=== PATIENT | female | born 1950 | race Caucasian/White ===

== ENCOUNTER 2018-05-29 11:00 | Outpatient (RCR) | payer MEDICARE, SELFPAY ==
[2015-11-23 13:00] VITALS: BMI 31.4
--- NOTE | 2018-03-27 16:22 | HP.OTEVAL_ITS ---
Patient's Visit Information JEROME CORREA is a 67 year old F, referred to Occupational Therapy by Angélica Schofield MD, with a diagnosis of Lt Radial Styloid tenosynovitis. Date of Evaluation: 03/27/18 Occupational Therapist: Mary Jo Curtis - Subjective Subjective: Pt seen for initial occupational therapy evaluation for L radial styloid tenosynovitis that she has had for the past few months. She has been wearing a splint on her L hand for the past 6 wks to decrease movement of L hand. Pt states she is only to have her hand out of the splint 1 hr a day. She has hx of Parkinson's disease. She works out daily, but has been very limited with that over the past few weeks secondary to dealing with a family related issue. Pt lives w/ spouse and is planning to go to [place] for 2 months in May and would like to have decreased pain and increased functional use of L hand when she goes to [place]. - Pain L wrist 0 Pain Intensity Range: 0, 1, 2, 3, 4, 5, 6, 7, 8, 9, 10 - Objective Objective/Observation: decreased ROM and strength L hand/wrist, increased edema L hand/wrist, increased pain with movement of L hand/wrist - ROM ROM Comments: R wrist 50/115. L wrist 37/35. Able to make active composite fist - Strength History Department Chair: R 55#, L DNT Lateral Pinch: R 8#, L DNT Tripod Pinch: R 7#, L DNT - Edema Other: Slight edema L wrist - Sensation Sensation Comments: Numbness and tingling L hand - DASH-Disabilities of Arm, Shoulder& Hand DASH Sum: 97 - Goals Goal:: Pt will progress w/ L hand aircraft refueller strength to 45# to increase ability to ring out wash clothes independently without assist when washing dishes. Goal:: Pt will progress w/ L wrist AROM flexion by 50' to assist w/ BADLs. Goal:: Pt will demo no pain greater than 2/10 with movement of L hand/wrist by d/c from OT services Goal:: Pt will be educated on joint protection and energy conservation t echniques w/ good understanding and demo 100%x Goal:: Pt will be educated on self massage techniques and L UE HEP with good understanding and demo 100%x - Rehabilitation General Assessment: Pt demo decreased AROM and strength L hand and wrist with increased pain L hand indicating a need for skilled OT interventions to increase L hand/wrist AROM and strength, educate on HEP and decrease pain of L hand/wrist to increase ability to use L hand for BADL. Rehabilitation Potential: Good - Anticipated Interventions Anticipated Interventions: A/AAROM/PROM, Strengthening, Massage, Modalities, Orthoses, Joint Protection/Energy Conservation, Fine Motor Coord/Edgard, ADL Training, Education re Self Massage Techniques, Caregiver Training, Home Program - Visit Plan Frequency: 1-2x /Week Duration: 4-6 Weeks General Plan: increase L hand/wrist AROM and strength, educate on HEP and joint protection and decrease pain of L hand/wrist to increase ability to use L hand for BADL. TEXT: Thank you for the opportunity to evaluate your patient. For Medicare and Medicare HMO plans, please review the plan of care and approve it. It will need to be FAXED BACK to us at [phone] for Medicare purposes. Please let me know if there are questions or concerns regarding this plan of care. Physician Signature: Date:
--- NOTE | 2018-05-01 12:10 | HP.OTREVAL ---
Angélica Schofield MD, It has been my pleasure to treat JEROME CORREA over the last 10 visits for Lt Radial Styloid tenosynovitis. Please see the progress note below for an update on the occupational therapy plan of care! Subjective: Pt arrived late to session apologizing for being late stating she had to wash all her Do dishes this morning and has a lot going on. Increased pain in L hand secondary to washing dishes Objective/Function: 10th visit OT re-eval: Pt continues to have increased pain with movement and when completing repetitive movements. Have educated pt on ROM and strengthening exercises to complete at home. Have educated on joint protection and energy conservation techniques and to minimize repetitive movements LUE. Have used ultra sound, fluidotherapy and PB to assist with decreasing pain and increasing circulation to promote healing process. Pt no longer wearing L hand splint and has started the light strengthening exercises with putty and using playdough at home. Pt has progressed with L computer technical support specialist strength 40#. Her L wrist extension has progressed from 37' to 54' and L wrist flexion from 35' to 65'. Pt contines to have increased pain with movements and is concerned with bump on hand. Pt would continue to benefit from more skilled OT interventions to continue to increase L UE strength, AROM and decrease pain with movement. Rec continued OT services 1-2x/wk for 3wks. Plan Frequency: 1-2x /Week Duration: 4-6 Weeks Plan: cont w/ prior POC, see Re-Eval for all details Goals - Goals Goal:: Pt will progress w/ L hand computer technical support specialist strength to 45# to increase ability to ring out wash clothes independently without assist when washing dishes. Goal:: Pt will progress w/ L wrist AROM flexion by 50' to assist w/ BADLs. Goal:: Pt will demo no pain greater than 2/10 with movement of L hand/wrist by d/c from OT services Goal:: Pt will be educated on joint protection and energy conservation techniques w/ good understanding and demo 100%x Goal:: Pt will be educated on self massage techniques and L UE HEP with good understanding and demo 100%x Anticipated Interventions Anticipated Interventions: A/AAROM/PROM, Strengthening, Massage, Modalities, Orthoses, Joint Protection/Energy Conservation, Fine Motor Coord/Edgard, ADL Training, Education re Self Massage Techniques, Caregiver Training, Home Program Please do not hesitate to contact me at [phone] by phone or if you have questions or concerns regarding this new plan of care! Sincerely, Mary Jo Curtis
--- NOTE | 2018-05-29 15:25 | HP.OTDCSUM_ITS ---
HP - OT D/C Summary It has been my pleasure to treat JEROME CORREA under orders from Angélica Schofield MD, for the diagnosis of Lt Radial Styloid tenosynovitis for a total of 14 visit(s). Please see the following information for a summary of their discharge status. - Objective Objective/Function: increase L wrist ROM and strength to increase independence with functional living tasks - Goals Patient Goals: Regain Strength, Decrease Pain, Decrease Swelling/Stiffness, Improve Fine Motor Skills, Use Hand/Wrist/Arm Normally Again, Sleep Better, Decrease Tingling/Numbness, Increase ROM, Be More Independent in ADLS, Resume Former Household Responsibilities (Cooking,Cleaning,Yard, etc.), Resume Hobbies Goal:: Pt will progress w/ L hand ad trafficker strength to 45# to increase ability to ring out wash clothes independently without assist when washing dishes. Goal:: Pt will progress w/ L wrist AROM flexion by 50' to assist w/ BADLs. Goal:: Pt will demo no pain greater than 2/10 with movement of L hand/wrist by d/c from OT services Goal:: Pt will be educated on joint protection and energy conservation techniques w/ good understanding and demo 100%x Goal:: Pt will be educated on self massage techniques and L UE HEP with good understanding and demo 100%x - Plan Plan: d/c OT services secondary to leaving for [place] for few months - D/C Information Discharge Comments: Pt has made limited progress with OT goals. She was seen for Lt Radial Styloid tenosynovitis and a few wks into therapy pt had to have cyst removed from L hand which increased edema and has limited progress, AROM and strength. Pt completed AROM L wrist 37/35 at evaluation and at d/c was 30/45. Pt L hand ad trafficker strength at d/c was 25# and R hand ad trafficker strength at evaluation was 55#. Pt L lateral pinch at d/c was 4# and tripod pinch 3#, was not tested at evaluation secondary to painful to complete task. Pt continues to demo increased edema and pain with movement of L wrist/hand. Pt has been educated on L UE HEP and joint protection, energy conservation techniques. Pt has been educated on use of modalities to assist with edema and stiffness. Pt educated on scar massage and manual massage techniques. Pt did not meet all goals secondary to increased pain, edema, decreased strength. Pt is completing all BADL/IADL tasks on her own. Pt would benefit from more OT interventions to increase L UE strength, AROM and decrease pain and edema however pt d/c from OT services secondary to moving to [place] for winter months. If there are questions or concerns regarding this patient's occupational therapy, please fell free to call me at [phone]. Thank you for the referral of this patient. Sincerely, Mary Jo Curtis
== END 2018-05-29 19:00 | disposition home or self-care (01) ==
LOC: OT 11:00
PROVIDERS: Family Provider Family Medicine; PCP Family Medicine; Referring Provider Orthopaedic Surgery Hand Surgery; Visit Provider Orthopaedic Surgery Hand Surgery
DX: M65.4 Radial styloid tenosynovitis [de Quervain] (principal)
CPT/HCPCS: 97035; 97110; 97140; 97165; 97166; 97168; 97530

== ENCOUNTER 2019-08-01 17:44 | Emergency (ER) | payer MEDICARE, SELFPAY ==
[2015-11-23 13:00] VITALS: BMI 31.4
[2019-08-01 17:45] VITALS: BP 154/84; PULSE 81; RESP 16; TEMP 36.8; O2SAT 100; BMI 31.4
--- NOTE | 2019-08-01 18:01 | CT_ITS ---
STUDY: CT BRAIN WITHOUT CONTRAST REASON FOR EXAM: Female, 69 years old. FELL ASLEEP ON TOILET, FELL AND HIT HEAD. NO LOC. RADIATION DOSAGE (If Supplied By Facility): CTDIvol = ( 44.99 ) mGy, DLP = ( 779.24 ) mGycm TECHNIQUE: Transaxial CT imaging of the brain was performed without administration of intravenous contrast material. Individualized dose optimization techniques were used for this CT. COMPARISON: No relevant priors. FINDINGS: Small right parietal scalp hematoma. Normal calvarium. Normal size ventricles and extra-axial spaces for the patient''s age. Normal white matter tracts of the cerebral hemispheres. Normal basal ganglia and thalami. Normal brainstem. Normal cerebellum. There is no intracranial hemorrhage. There are no findings of an acute ischemic infarction. Normal visualized paranasal sinuses. CT/Brain/Head without Contrast IMPRESSION: Small right parietal scalp hematoma. No intracranial hemorrhage. Electronically Signed: Ghulam Mays MD at 18:48 EST Tel , Service support ,
--- NOTE | 2019-08-01 18:02 | ED.DCSUM_ITS ---
- ER Visit Summary Date of Service: 08/01/19 Chief Complaint: Head injury History of Present Illness: The patient is a 69 F who presents with a head injury that occurred today. Patient states she fell while she was on the toilet. Patient states she fell asleep on the toilet and fell forward. Patient states she hit her head on the bathtub. Patient denies any loss of consciousness. Patient states her pain is over the right parietal area. Patient states the pain is worse with bending forward. Patient describes the pain as sharp. Patient has a history of Parkinson's disease but denies any worsening symptoms. Patient states she is able to ambulate normally. Patient denies any nausea or vomiting. Patient denies any visual changes. Patient states that when she looked in the mirror she thought her right eye was glassed over this morning. Physical Examination: Vital signs are stable. Patient is afebrile. Patient is in no acute distress. Pupils are equal, round, and reactive to light bilaterally. Extraocular muscles are intact. Conjunctiva is clear. Neck is smith pple. Trachea is midline. There is no JVD. Heart was regular rate and rhythm. Lungs are clear and equal bilaterally. Abdomen is soft. Bowel sounds are normal. There is no tenderness. Cranial nerves II through XII are intact. There are no focal motor or sensory deficits noted. There is tenderness and a small hematoma over the right parietal area. There is no bony crepitance or step-off. There is no ecchymosis noted. Test Results: CT scan of the brain was obtained. There is no acute intracranial abnormality. This was interpreted by the radiologist and reviewed by myself. Emergency Department Course and Treatment: Patient was instructed to use ice to the area. Patient was instructed to follow-up with her primary care physician in 5 to 7 days. Patient was instructed to take Tylenol or ibuprofen as needed for pain. Patient understood and was agreeable with the plan. All questions were answered. Disposition: Discharge home Impression: Head contusion This note was generated with [employer] dictation software. It may contain incorrect words, spelling, and punctuation that were not noted in review of the chart prior to signing ED Disposition - Plan for ED Patient: Disposition: Home or Assisted Living Diagnosis: Head contusion Instructions: HEAD INJURY, No Wake-Up (Adult) Referrals: Jason Dominguez MD [Primary Care Provider] - 5-7 Days
== END 2019-08-01 19:32 | disposition home or self-care (01) ==
PROVIDERS: Emergency Provider Emergency Medicine; PCP Family Medicine
DX: S00.03XA Contusion of scalp, initial encounter (principal); W18.12XA Fall from or off toilet with subsequent striking against object, initial encounter; Y93.9 Activity, unspecified; Y92.9 Unspecified place or not applicable; G20 Parkinson's disease
CPT/HCPCS: 70450; 99282

== ENCOUNTER 2019-12-16 11:18 | Observation (INO) | payer MEDICARE, SELFPAY ==
[2015-11-23 13:00] VITALS: BMI 31.4
[2019-12-16] VITALS (8 sets, daily range): BP systolic 114–142; BP diastolic 47–62; PULSE 63–81; RESP 14–18; TEMP 36.6–37.2; O2SAT 94–100; BMI 33.0; BMI 32.0
--- NOTE | 2019-12-16 11:54 | EKG12_ITS ---
Test Reason : CHEST HEAVINESS Blood Pressure : / mmHG Vent. Rate : 078 BPM Atrial Rate : 078 BPM P-R Int : 192 ms QRS Dur : 088 ms QT Int : 394 ms P-R-T Axes : 050 007 038 degrees QTc Int : 449 ms Normal sinus rhythm Normal ECG Confirmed by DALLAS RAMIREZ ([id number]), greeting card editor BETTY CLOUD ([id number]) on 12/21/2019 12:04:04 PM Referred By: /ES Confirmed By:DALLAS RAMIREZ
--- NOTE | 2019-12-16 11:56 | CT_ITS ---
STUDY: CT ABDOMEN AND PELVIS WITHOUT CONTRAST REASON FOR EXAM: Female, 69 years old. LLQ PAIN X 5 DAYS, SOB X 1 WK RADIATION DOSAGE (If Supplied By Facility): CTDIvol = ( 19.26 ) mGy, DLP = ( 1196.36 ) mGycm TECHNIQUE: Transaxial images were obtained from the dome of the diaphragm to the symphysis pubis without oral contrast, and without intravenous contrast. Sagittal and coronal images were reconstructed. Individualized dose optimization techniques were used for this CT. COMPARISON: 2017 FINDINGS: The visualized lung bases are unremarkable. The visualized portions of the heart are within normal limits. Normal liver. Normal gallbladder and extrahepatic biliary system. Normal spleen. Normal pancreas. Normal bilateral adrenal glands. Stable pelvocaliectasis in both kidneys. This is unchanged from the previous study and likely chronic or congenital. There is no hydroureter or perinephric or periureteral inflammatory stranding. Stable 4 cm left renal cyst. There is a small hiatal hernia. Normal small intestine. Retained stool noted throughout the colon. Scattered sigmoid diverticulosis without CT evidence of acute diverticulitis. There is non-visualization of the appendix. There is diffuse atherosclerotic calcification of the abdominal aorta, without a demonstrated aneurysm. Normal inferior vena cava. Normal retroperitoneum. Normal urinary bladder. Uterus is still present, the endometrium cannot be accurately evaluated with CT. There is a stable 1.5 x 3 cm right renal cyst. Normal abdominal wall. There are diffuse degenerative changes of the visualized lumbar spine. CT/Abdomen/Pelvis W IV Cont ONLY IMPRESSION: Stable pelvic caliectasis in both kidneys, suspect this is likely chronic, it is described on the previous study. No hydroureter, perinephric or periureteral inflammatory stranding noted. Stable renal cysts, no specific follow-up needed Diverticulosis Uterus is still present, likely contains an involuted calcified fibroid, the endometrium cannot be accurately evaluated with CT. 1.5 x 3 cm right ovarian cyst unchanged from previous study. Electronically Signed: Braxton Hall MD at 13:38 EDT , Service support ,
--- NOTE | 2019-12-16 12:01 | ED.DCSUM_ITS ---
- ER Visit Summary Date of Service: 12/16/19 Chief Complaint: Multiple complaints History of Present Illness: The patient is a 69 F with chest heaviness, shortness of breath, cough. She also complains of abdominal pain, nausea. She has had a mild headache. She has had temperature up to 99. She states she has had a nonproductive cough. She has a history of Parkinson's and has some difficulty with swallowing at baseline. She states she may have aspirated a couple of days ago. She has been having intermittent chest heaviness. No sick contacts. No recent travel. She called her primary care physician who was concerned about possibility of COVID and advised her to come to the emergency department. Physical Examination: Vitals are stable. Temperature 99. Pulse ox 99% on room air. Alert no acute distress. HEENT exam is unremarkable. Neck is supple. Lungs are clear and equal bilaterally. Heart is regular rate and rhythm. Abdomen is soft left lower quadrant tenderness with no guarding or rebound Extremities are unremarkable. Skin is warm and dry. No focal neurologic deficit. Remainder of exam is unremarkable. Emergency Department Course and Treatment: EKG is sinus rhythm rate of 78 with no acute ischemic changes. Chest x-ray shows no acute process. CT abdomen pelvis shows stable pelvic caliectasis in both kidneys, suspect this is likely chronic, it is described on the previous study. No hydroureter, perinephric or periureteral inflammatory stranding noted. Stable renal cysts, no specific follow-up needed. Diverticulosis. Uterus is still present, likely contains an involuted calcified fibroid, the endometrium cannot be accurately evaluated with CT. 1.5 x 3 cm right ovarian cyst unchanged from previous study. CBC, chemistries unremarkable. Urinalysis unremarkable. Troponin is negative. Due to patient's intermittent chest heaviness will discuss with the hospitalist for observation. Covid testing will be sent. Disposition: Admission Impression: Chest pain, left lower quadrant abdominal pain This note was generated with [employer] dictation software. It may contain incorrect words, spelling, and punctuation that were not noted in review of the chart prio r to signing ED Disposition - Plan for ED Patient: Referrals: Jason Dominguez MD [Primary Care Provider] -
[2019-12-16] MEDS: Ondansetron 4 MG/2 ML Vial IV (12:28)
[2019-12-16 12:29] LABS: Absolute Lymphocyte Count 1.55 X10^3/uL (0.83-4.51); Absolute Neutrophil Count 2.7 X10^3/uL (2.0-7.7); Basophil# 0.03 X10^3/uL; Basophil% 0.6 % (0-1); Eosinophil# 0.09 X10^3/uL; Eosinophils% 1.9 % (0-5); Hematocrit 44.7 % (37-47); Hemoglobin 14.5 g/dL (12.0-15.0); Lymphocyte # 1.55 X10^3/ul (4.0); Lymphocyte % 32.4 % (19-41); Mean Corp Hgb Conc 32.4 g/dL (32-36); Mean Corpuscular Hgb 29.2 pg (27.0-32.0); Mean Corpuscular Volume 89.9 fL (81-99); Mean Platelet Vol. 10.6 fl (6.2-12.0); Monocyte% 8.4 % (0-10); NRBC Flagged by Analyzer 0 % (0-5); Neutrophil % 56.5 % (47-70); Platelet Count 213 K/mm3 (150-450); RBC Distribution Width CV 12.8 % (11.6-14.6); RBC Distribution Width SD 41.9 fl (35.1-43.9); Red Blood Count 4.97 M/mm3 (4.2-5.4); White Blood Count 4.8 K/mm3 (4.4-11.0)
[2019-12-16 12:44] LABS: ALB/GLOB Ratio 1.1 RATIO (0.9-2.4); AST(SGOT) 19 U/L (15-37); Alanine Aminotransfer ALT/SGPT 10 U/L (13-56); Albumin, Serum 3.8 g/dL (3.2-5.0); Alkaline Phosphatase 106 U/L (45-117); Anion Gap 1 (5-15); BUN 24 mg/dL (7-18); BUN/Creat Ratio 24.9 RATIO (10-20); Calcium,Total 9.1 mg/dL (8.5-10.1); Chloride 104 mmol/L (98-107); Creatinine, Serum 0.96 mg/dL (0.55-1.02); EST Glomerular Filtration Rate 61 mL/min (>60); Est Glom Filt Rate - Afr Amer 74 mL/min (>60); Estimated Creatinine Clearance 52.51 ml/min; Globulin 3.4 g/dL (2.2-4.2); Glucose 100 mg/dL (74-106); Lipase 107 U/L (73-393); Potassium 3.5 mmol/L (3.5-5.1); Protein, Total 7.2 g/dL (6.4-8.2); Sodium Level 139 mmol/L (136-145)
--- NOTE | 2019-12-16 13:09 | RAD_ITS ---
STUDY: X-RAY CHEST REASON FOR EXAM: Female, 69 years old. pt having LLQ pain since saturday. intermittent pain/nausea. frequency with urination. also states having l chest heaviness and sob for a week. not feeling well for a week. TECHNIQUE: Single AP portable view of the chest. COMPARISON: 03/19/2015 FINDINGS: EKG leads overlie the chest The lungs are clear and expanded. There is no demonstrated pleural abnormality. Normal size heart. Normal mediastinum and da. Normal visualized pulmonary arteries. Normal visualized aortic arch and descending thoracic aorta. Normal visualized thoracic spine. Normal visualized ribs, clavicles, and shoulders. There is no demonstrated abnormality of the visualized soft tissue structures of the upper abdomen. RAD/Chest 1 View (Portable) IMPRESSION: Normal x-ray examination of the chest. Electronically Signed: Braxton Hall MD at 13:43 EDT , Service support ,
[2019-12-16 13:42] LABS: Bacteria 0 SEEN /hpf (None Seen); Mucous, Urine 0 SEEN /hpf (<or=2+); Red Blood Cells-Urine 0 SEEN /hpf (0-5)
[2019-12-16 13:47] LABS: Color, Urine Straw (Yellow); Glucose, Dipstick Normal (Normal); Ketone-Dipstick Negative (Negative); Leukocyte Esterase-Dipstick Negative /ul (Negative); Nitrite-Dipstick Negative (Negative); Occult Blood-Urine Negative /ul (Negative); Protein-Dipstick Negative (Negative); Urine Bilirubin Dipstick Negative (Negative); Urine Clarity Clear (Clear); Urine Urobilinogen Normal (Normal)
[2019-12-16 13:57] LABS: White Blood Cells 0-5 SEEN /hpf (0-5)
[2019-12-16 13:58] LABS: Squamous Epithelial Cells - UA 0-5 SEEN /hpf (5-10)
--- NOTE | 2019-12-16 15:18 | NURSING ---
[id number]
--- NOTE | 2019-12-16 16:15 | PCM.HP.STD ---
<Johanne Atkins - Last Filed: 12/16/19 16:34> Problem List (1) Splenomegaly Status: Chronic (2) Neuropathy Status: Chronic (3) Obesity (BMI 30.0-34.9) Status: Chronic (4) HLD (hyperlipidemia) Status: Chronic (5) Heart murmur Status: Chronic (6) Ovarian cyst Status: Chronic (7) Glucose intolerance (impaired glucose tolerance) Status: Chronic (8) Diverticulosis Status: Chronic (9) Parkinson disease Status: Chronic (10) Diverticulitis Status: Acute (11) HTN (hypertension) Status: Chronic (12) GERD (gastroesophageal reflux disease) Status: Chronic (13) Venous insufficiency Status: Chronic (14) Uterine mass Status: Chronic (15) Frequent falls Status: Chronic (16) Ureteral mass Status: Chronic History of Present Illness Date of Admission: 12/16/19 Chief Complaint: Chest pressure, shortness of breath. The patient is a 69 year old F who presents to the emergency room due to chest pressure and shortness of breath. Patient states she has had mild shortness of breath for the past week or so. She describes it as difficulty taking a deep breath. And states she feels worse while wearing a mask. She also reports intermittent cough and low-grade fever. Patient states due to underlying health conditions including Parkinson's disease, she has been extremely cautious and has only been out of her house since July to go to a hair appointment and the dentist. She denies recent travel or sick contacts. Patient reports over the last few days she has had intermittent chest discomfort which she describes as a squeezing pain. She states she is not very active however she walks up and down her driveway to get the mail without any increased symptoms. She denies lightheadedness, diaphoresis, nausea. She has a past medical history of hypertension, hyperlipidemia, prediabetes, Parkinson's disease, history of CVA, CANDIDA. Past Medical History Past Medical History (Chronic Problems): Chronic Problems Splenomegaly (Chronic) Neuropathy (Chronic) Obesity (BMI 30.0-34.9) (Chronic) HLD (hyperlipidemia) (Chronic) Heart murmur (Chronic) Ovarian cyst (Chronic) Glucose intolerance (impaired glucose tolerance) (Chronic) Diverticulosis (Chronic) Parkinson disease (Chronic) HTN (hypertension) (Chronic) GERD (gastroesophageal reflux disease) (Chronic) Venous insufficiency (Chronic) Uterine mass (Chronic) Frequent falls (Chronic) Ureteral mass (Chronic) Allergies esomeprazole magnesium [From Nexium] Allergy (Verified 12/16/19 11:25) Unknown azithromycin Adverse Reaction (Verified 12/16/19 11:25) Nausea/Vom/Diarrhea Home Medications: Ambulatory Orders Medication Instructions Recorded Atorvastatin Calcium [Lipitor] 10 mg PO QHS 03/19/15 Lisinopril/Hydrochlorothiazide 1 tablet PO DAILY 03/19/15 [Zestoretic 03/07.5 Tablet] Carbidopa/Levodopa [Rytary ER 3 each PO TIDCM 04/08/17 36.25 mg-145 mg Cap] Ropinirole HCl [Requip] 2 mg PO QHS 04/08/17 Sertraline HCl [Zoloft] 200 mg PO DAILY 04/08/17 Docusate Sodium [Colace] 100 mg PO DAILY PRN PRN 04/09/17 Carbidopa/Levodopa 2 tab PO 1930 12/16/19 Surgical History: - - L ureteral stent for a ureteral mass at [facility]. Removal of ovarian cysts and several surgeries to remove bone cysts in knee, calcaneus and the sternum. 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 Paternal History Items: Heart Disease, Stroke, No pertinent history - Her father at the age of 32 motor vehicle accident, - - Blood clots Sibling History Items: - - She has a sister who has had DVTs and pulmonary emboli but she states that these are much better since her sister had bariatric surgery. Review of Systems Constitutional: Reports: Fever. Denies: Chills, Weight Change HEENT: Reports: Difficulty Swallowing - Chronic. Denies: Head Aches, Sinus Congestion, Sinus Drainage Cardiovascular: Reports: Chest Tightness. Denies: Chest Pain, Light Headedness, Palpitations, Syncope Respiratory: Reports: Cough, Shortness of Breath. Denies: Sputum production Gastrointestinal: Denies: Abdominal Pain, Nausea, Vomiting Genitourinary: Reports: Frequency. Denies: Dysuria Musculoskeletal: Denies: Joint Pain, Joint Tenderness Skin: Denies: Rash, Wounds Neurological: Denies: Numbness, Tingling, Focal weakness Psychiatric: Reports: Anxiety, Depression Hematologic/ Lymphatic: Denies: Easy Bruising, Easy Bleeding VTE Information - Inpt Only VTE Present on Admission: No VTE Mechan Device Prophylaxis: None VTE Pharm Prophylaxis ordered?: Yes - Physical Exam Vitals/I&O's: Vital Signs Temp Pulse Resp BP Pulse Ox 98.4 F 74 18 125/62 H 96 12/16/19 15:00 12/16/19 15:00 12/16/19 15:00 12/16/19 15:00 12/16/19 15:00 Oxygen Delivery Method Room Air Weight: 205 lb Body Mass Index (BMI) 33.0 Finger Stick Blood Glucose 100 Intake and Output for Last 24 Hours 12/14/19 12/15/19 12/16/19 23:59 23:59 23:59 Intake Total 500 / 500 Balance 500 / 500 General: Alert, Oriented x3, Cooperative HEENT: Atraumatic, PERRLA, EOMI, Normocephalic Neck: Supple, No JVD, Negative Carotid Bruits Lungs: Clear to auscultation, Diminished Cardiovascular: Regular rate, No murmurs Abdomen: Bowel Sounds Present, Soft, Non Tender, Non-Distended, Obese Extremities: No clubbing, No cyanosis, No edema, Capillary Refill Less than 3 Seconds Skin: No rashes, No breakdown Musculoskeletal: No Tenderness to Palpation of Joints or Extremities Neurological: Cranial nerves II-XII grossly intact, Neuro grossly intact Psych/Mental Status: Normal Affect, Appropriate Laboratory Results 12/16/19 12:15: WBC 4.8, RBC 4.97, Hgb 14.5, Hct 44.7, MCV 89.9, MCH 29.2, MCHC 32.4, RDW Std Deviation 41.9, RDW Coeff of Nabeel 12.8, Plt Count 213, MPV 10.6, Immature Gran % (Auto) 0.200, Neut % (Auto) 56.5, Lymph % (Auto) 32.4, Lynn % (Auto) 8.4, Eos % (Auto) 1.9, Baso % (Auto) 0.6, Absolute Neuts (auto) 2.7, Absolute Lymphs (auto) 1.55, Nucleated RBC % 0 12/16/19 12:15: Sodium 139, Potassium 3.5, Chloride 104, Carbon Dioxide 34.0 H, Anion Gap 1 L, BUN 24 H, Creatinine 0.96, Estim Creat Clear Calc 52.51, Est GFR (MDRD) Af Amer 74, Est GFR (MDRD) Non-Af 61, BUN/Creatinine Ratio 24.9 H, Glucose 100, Calcium 9.1, Total Bilirubin 0.60, AST 19, ALT 10 L, Alkaline Phosphatase 106, Troponin I < 0.015, Total Protein 7.2, Albumin 3.8, Globulin 3.4, Albumin/Globulin Ratio 1.1, Lipase 107 12/16/19 13:25: Urine Color Straw, Urine Clarity Clear, Urine pH 6.0, Ur Specific [place] 1.010, Urine Protein Negative, Urine Glucose (UA) Normal, Urine Ketones Negative, Urine Occult Blood Negative, Urine Nitrite Negative, Urine Bilirubin Negative, Urine Urobilinogen Normal, Ur Leukocyte Esterase Negative, Urine RBC 0 SEEN, Urine WBC 0-5 SEEN, Ur Squamous Epith Cells 0-5 SEEN, Urine Bacteria 0 SEEN, Urine Mucus 0 SEEN 12/16/19 14:01: COVID-19 (FIDELIA) Pending Current Medications Acetaminophen (Tylenol) 650 mg PO Q6H PRN PRN PRN Reason: Pain Score 1-10/Temp > 100.7 F Enoxaparin Sodium (Lovenox) 40 mg SC DAILY BAILEE Nitroglycerin (Nitrostat) 0.4 mg SUBLINGUAL Q5M PRN PRN Reason: CARDIAC/CHEST PAIN Ondansetron HCl (Zofran) 4 mg IV Q8H PRN PRN PRN Reason: NAUSEA/VOMITING Assessment/Plan All Active Problems Diverticulitis (Acute) 1. Chest tightness, shortness of breath-COVID pending. Trend enzymes. EKG without ST-T changes. Pending COVID testing and negative enzymes, plan for stress test. 2. Hypertension-stable, continue lisinopril/HCTZ regimen. 3. Hyperlipidemia-continue statin. 4. Prediabetes-diet controlled. 5. Parkinson's disease-continue home carbidopa/levodopa regimen. 6. History of CVA-history of left thalamus infarct per MRI. 7. CANDIDA-continue home BiPAP regimen. DVT prophylaxis-Lovenox subcu This patient was seen by BOYD Martinez under the supervision of Dr. Tom. <Sky Tom F - Last Filed: 12/16/19 19:01> History of Present Illness The patient is a 69 year old F [] Past Medical History Allergies esomeprazole magnesium [From Nexium] Allergy (Verified 12/16/19 11:25) Unknown azithromycin Adverse Reaction (Verified 12/16/19 11:25) Nausea/Vom/Diarrhea - Physical Exam Vitals/I&O's: Vital Signs Temp Pulse Resp BP Pulse Ox 98.6 F 71 16 114/47 L 94 12/16/19 18:38 12/16/19 18:38 12/16/19 18:38 12/16/19 18:38 12/16/19 18:38 Oxygen Delivery Method Room Air Weight: 198 lb 8 oz Body Mass Index (BMI) 32.0 Finger Stick Blood Glucose 100 Intake and Output for Last 24 Hours 12/14/19 12/15/19 12/16/19 23:59 23:59 23:59 Intake Total 500 / 500 Balance 500 / 500 Laboratory Results 12/16/19 12:15: WBC 4.8, RBC 4.97, Hgb 14.5, Hct 44.7, MCV 89.9, MCH 29.2, MCHC 32.4, RDW Std Deviation 41.9, RDW Coeff of Nabeel 12.8, Plt Count 213, MPV 10.6, Immature Gran % (Auto) 0.200, Neut % (Auto) 56.5, Lymph % (Auto) 32.4, Lynn % (Auto) 8.4, Eos % (Auto) 1.9, Baso % (Auto) 0.6, Absolute Neuts (auto) 2.7, Absolute Lymphs (auto) 1.55, Nucleated RBC % 0 12/16/19 12:15: Sodium 139, Potassium 3.5, Chloride 104, Carbon Dioxide 34.0 H, Anion Gap 1 L, BUN 24 H, Creatinine 0.96, Estim Creat Clear Calc 52.51, Est GFR (MDRD) Af Amer 74, Est GFR (MDRD) Non-Af 61, BUN/Creatinine Ratio 24.9 H, Glucose 100, Calcium 9.1, Total Bilirubin 0.60, AST 19, ALT 10 L, Alkaline Phosphatase 106, Troponin I < 0.015, Total Protein 7.2, Albumin 3.8, Globulin 3.4, Albumin/Globulin Ratio 1.1, Lipase 107 12/16/19 13:25: Urine Color Straw, Urine Clarity Clear, Urine pH 6.0, Ur Specific [place] 1.010, Urine Protein Negative, Urine Glucose (UA) Normal, Urine Ketones Negative, Urine Occult Blood Negative, Urine Nitrite Negative, Urine Bilirubin Negative, Urine Urobilinogen Normal, Ur Leukocyte Esterase Negative, Urine RBC 0 SEEN, Urine WBC 0-5 SEEN, Ur Squamous Epith Cells 0-5 SEEN, Urine Bacteria 0 SEEN, Urine Mucus 0 SEEN 12/16/19 14:01: COVID-19 (FIDELIA) Negative 12/16/19 17:20: Troponin I < 0.015 Current Medications Acetaminophen (Tylenol) 650 mg PO Q6H PRN PRN PRN Reason: Pain Score 1-10/Temp > 100.7 F Atorvastatin Calcium (Lipitor) 10 mg PO QHS BAILEE Docusate Sodium (Colace) 100 mg PO DAILY PRN PRN PRN Reason: Constipation Enoxaparin Sodium (Lovenox) 40 mg SC DAILY BAILEE Hydrochlorothiazide () 12.5 mg PO DAILY BAILEE Sodium Chloride () 250 mls @ 15 mls/hr IV .[id number] PRN PRN Reason: Saline Flush Sodium Chloride () 250 mls @ 15 mls/hr IV .[id number] PRN PRN Reason: Additional IVPB Infusion Lisinopril (Zestril) 10 mg PO DAILY BAILEE Nitroglycerin (Nitrostat) 0.4 mg SUBLINGUAL Q5M PRN PRN Reason: CARDIAC/CHEST PAIN Non-Formulary Medication (Carbidopa/Levodopa) 3 each PO TID BAILEE Ondansetron HCl (Zofran) 4 mg IV Q8H PRN PRN PRN Reason: NAUSEA/VOMITING Pramipexole Dihydrochloride (Mirapex) 1 mg PO HS BAILEE Sertraline HCl (Zoloft) 200 mg PO DAILY BAILEE Sodium Chloride () 10 - 40 ml IV UD PRN PRN Reason: SALINE FLUSH Addendum: Dr. Tom I personally examined the patient and reviewed the chart. I agree with the above. 69-year-old female who presents to the emergency room secondary to chest pressure and shortness of breath. She says it is been going on for about the last week and she notices it both with anxiety as well as mild activity. She states that she has had 2 stress test in the past one was about 30 years ago the other was about 10 years ago. She said that at the time the stress test were negative but they are very similar chest pressures which she is having today. She denies any significant radiation of her chest pain but she also has noticed that she had difficulty taking deep breaths with her BiPAP, which is unusual for her. She also has some rhinorrhea as well as a cough that this could be secondary to aspiration secondary to her Parkinson's disease. However a COVID test was obtained which was negative. Will obtain serial troponins and if necessary can proceed with a chemical stress test as she is unable to exercise given her Parkinson's. OBSV E&M: [id number] Initial observation care L3
--- NOTE | 2019-12-16 16:58 | ED.RN ---
pt admission transfer delayed d/t departmental activity
[2019-12-16] MEDS: Atorvastatin Calcium 10 MG Tablet PO (21:01)
[2019-12-16] MEDS: Pramipexole Di-HCl 1 MG Tablet PO (21:01)
[2019-12-16] MEDS: Aspirin 81 MG TAB.CHEW PO (22:28)
[2019-12-17] VITALS (7 sets, daily range): BP systolic 113–127; BP diastolic 38–55; PULSE 65–84; RESP 14–18; TEMP 36.4–37; O2SAT 96–100
--- NOTE | 2019-12-17 02:15 | EKG12_ITS ---
Test Reason : AM EKG Blood Pressure : / mmHG Vent. Rate : 066 BPM Atrial Rate : 066 BPM P-R Int : 210 ms QRS Dur : 082 ms QT Int : 414 ms P-R-T Axes : 042 025 035 degrees QTc Int : 434 ms Sinus rhythm with 1st degree A-V block Otherwise normal ECG When compared with ECG of 19-MAR-2015 09:43, No significant change was found Confirmed by DALLAS RAMIREZ ([id number]), web content editor BETTY CLOUD ([id number]) on 12/21/2019 12:46:37 PM Referred By: LAKEISHA Confirmed By:DALLAS RAMIREZ
[2019-12-17 06:43] LABS: Absolute Lymphocyte Count 1.46 X10^3/uL (0.83-4.51); Absolute Neutrophil Count 2.1 X10^3/uL (2.0-7.7); Basophil# 0.03 X10^3/uL; Basophil% 0.8 % (0-1); Eosinophils% 2.5 % (0-5); Hematocrit 42.3 % (37-47); Hemoglobin 13.9 g/dL (12.0-15.0); Lymphocyte # 1.46 X10^3/ul (4.0); Lymphocyte % 36.7 % (19-41); Mean Corp Hgb Conc 32.9 g/dL (32-36); Mean Corpuscular Hgb 29.6 pg (27.0-32.0); Mean Platelet Vol. 9.9 fl (6.2-12.0); Monocyte# 0.29 X10^3/uL; Monocyte% 7.3 % (0-10); NRBC Flagged by Analyzer 0 % (0-5); Neutrophil % 52.7 % (47-70); Platelet Count 195 K/mm3 (150-450); RBC Distribution Width CV 12.6 % (11.6-14.6); RBC Distribution Width SD 41.1 fl (35.1-43.9)
[2019-12-17 07:00] LABS: Anion Gap 1 (5-15); BUN 16 mg/dL (7-18); BUN/Creat Ratio 22.8 RATIO (10-20); Calcium,Total 8.8 mg/dL (8.5-10.1); Chloride 106 mmol/L (98-107); EST Glomerular Filtration Rate 88 mL/min (>60); Est Glom Filt Rate - Afr Amer 107 mL/min (>60); Estimated Creatinine Clearance 50.41 ml/min; Glucose 95 mg/dL (74-106); Potassium 3.8 mmol/L (3.5-5.1); Sodium Level 140 mmol/L (136-145)
[2019-12-17] MEDS: Acetaminophen 325 MG Tablet 650 MG PO (11:02)
[2019-12-17] MEDS: CARBIDOPA/LEVODOPA 1 EACH CAPSULE.ER 3 EACH PO (12:12)
--- NOTE | 2019-12-17 13:48 | STRESSREP_ITS ---
Stress Test Report Date: 12/17/2019 Procedure: Pharmacologic stress nuclear imaging study Indications: Chest pain Consent: Per the patient Procedure: The patient underwent pharmacologic (Regadenoson) evaluation with a peak heart rate of 99 beats per minute (65 %predicted maximal heart rate) and a peak blood pressure of 122/58 mmHg. The baseline ECG demonstrated normal sinus rhythm. EKG during lexiscan infusion revealed no significant ischemic changes. EKG post infusion revealed no significant ischemic changes [There were no cardiac dysrhythmias pretest, during pharmacologic infusion, or recovery]. [There was no complaint of chest discomfort during pharmacologic infusion or recovery]. The examination was discontinued secondary to completion of protocol. Impression: 1. Lexiscan stress test test is negative for Lexiscan infusion induced EKG changes of ischemia. 2. Lexiscan stress test test is negative for Lexiscan infusion induced chest pain. 3. Results of the nuclear portion of the test is as below Myocardial perfusion imaging study: Technique: The patient was injected with 13.9 millicuries of technetium 99m Cardiolite and subsequently rest SPECT Cardiolite nuclear imaging was obtained in the horizontal long, vertical long, and short axis views. The patient underwent pharmacologic (Regadenoson) evaluation. Please see above for details. The patient was injected with 41.8 millicuries of technetium 99m Cardiolite and subsequently stress SPECT Cardiolite nuclear imaging was obtained in the horizontal long, vertical long, and short axis views. A gated Cardiolite study at peak stress was obtained. Interpretation: Rest and stress SPECT Cardiolite nuclear imaging status post realignment, normalization, and attenuation correction demonstrate overall normal myocardial radioisotope uptake. Gated images reveal no significant regional wall motion abnormalities. The reported LVEF is greater than 70 %. Impression: 1. There is no evidence of significant ischemia or infarction. 2. Estimated ejection fraction is greater than 70%. This note was generated with [employer].ation software. It may contain incorrect words, spelling, and punctuation that were not noted in checking the note before signing.
--- NOTE | 2019-12-17 14:03 | CHAPLAIN ---
Type of Pastoral Visit _x__ Initial Visit ___ Follow-up Visit ___ On-call Visit ___ General Patient Visit ___ Spiritual Assessment ___ Family Conference ___ Bereavement ___ Rapid Response ___ Code Blue ___ Other (describe below) Pastoral Care Referral From _x__ Patient ___ Family ___ Nurse ___ Physician ___ Staffing Recruiter ___ Mud Analysis Well Logging Operator ___ Other (describe below) Sacrament/Intervention _x__ Active listening ___ Anointing ___ Congregational ___ Bereavement ___ Communion _x__ Ghada exploration ___ _x__ Life review _x__ Prayer ___ Reconciliation ___ Sacrament of Sick _x__ Supportive presence ___ Wedding ___ Other (describe below) Pastoral Comments patient requested contact of her anabaptist; task completed
--- NOTE | 2019-12-17 14:23 | DCINST_ITS ---
You will use the following diet at home:: Cardiac Your food should be the consistency of: Regular Your liquids should be the consistency of: Regular/Thin Discharge Activity: Return to Normal Activity Allergies/Adverse Reactions: Allergies esomeprazole magnesium [From Nexium] Allergy (Verified 12/16/19 11:25) Unknown azithromycin Adverse Reaction (Verified 12/16/19 11:25) Nausea/Vom/Diarrhea Medications to take at Discharge Atorvastatin Calcium [Lipitor] 10 mg PO QHS 03/19/15 Lisinopril/Hydrochlorothiazide [Zestoretic 03/07.5 Tablet] 1 tablet PO DAILY 03/19/15 Carbidopa/Levodopa [Rytary ER 36.25 mg-145 mg Cap] 3 each PO TIDCM 04/08/17 Ropinirole HCl [Requip] 2 mg PO QHS 04/08/17 Sertraline HCl [Zoloft] 100 mg PO DAILY 04/08/17 Docusate Sodium [Colace] 100 mg PO DAILY PRN PRN 04/09/17 Aspirin [Aspirin, Baby] 81 mg PO QHS 12/16/19 Carbidopa/Levodopa 2 tab PO 1930 12/16/19 Primary Care Physician: Jason Dominguez MD [Primary Care Provider] - Please follow up with your Primary Care Physician in: 1 week Test Results: Test results from this visit will be discussed in further detail at your follow- up appointment, if applicable. Proposed Discharge Date: 12/17/19
--- NOTE | 2019-12-17 14:32 | CASEMGMT ---
ANDREW met with patient and her . Introduced self and role at [facility]. SW asked patient if she is interested in having home health. She thought about it and talked wit out a bit. She talked with her . At this time she does not want home health. ANDREW explained what insurance pays for regarding home health. ANDREW told her she would have to be homebound. She does not like that idea. ANDREW told her there are also options for outpatient PT/OT. ANDREW told her there is [facility] and [facility] also has therapy here in [place]. ANDREW told her that her primary care doctor can also order home health or outpatient therapy for her if she changes her mind. She thanked ANDREW for the information. Kassidy HERBERT MSW
--- NOTE | 2019-12-17 14:33 | DS.PCM_ITS ---
<Lalo Childers - Last Filed: 12/17/19 14:33> Discharge Date and Diagnosis Date of Admission: 12/16/19 Date of Discharge: 12/17/19 - Primary Discharge Diagnosis Acute Problems: Chest pain-musculoskeletal - Secondary Discharge Diagnosis Chronic Problems: Chronic Problems Splenomegaly (Chronic) Neuropathy (Chronic) Obesity (BMI 30.0-34.9) (Chronic) HLD (hyperlipidemia) (Chronic) Heart murmur (Chronic) Ovarian cyst (Chronic) Glucose intolerance (impaired glucose tolerance) (Chronic) Diverticulosis (Chronic) Parkinson disease (Chronic) HTN (hypertension) (Chronic) GERD (gastroesophageal reflux disease) (Chronic) Venous insufficiency (Chronic) Uterine mass (Chronic) Frequent falls (Chronic) Ureteral mass (Chronic) Hospital Course and Treatment Imaging Results: 12/17/19 05:55 Nuclear Stress Test - Chemical [NM] AM (NON MEDS) Interpretation: Rest and stress SPECT Cardiolite nuclear imaging status post realignment, normalization, and attenuation correction demonstrate overall normal myocardial radioisotope uptake. Gated images reveal no significant regional wall motion abnormalities. The reported LVEF is greater than 70 %. Impression: 1. There is no evidence of significant ischemia or infarction. 2. Estimated ejection fraction is greater than 70% CT/Abdomen/Pelvis W IV Cont ONLY IMPRESSION: Stable pelvic caliectasis in both kidneys, suspect this is likely chronic, it is described on the previous study. No hydroureter, perinephric or periureteral inflammatory stranding noted. Stable renal cysts, no specific follow-up needed Diverticulosis Uterus is still present, likely contains an involuted calcified fibroid, the endometrium cannot be accurately evaluated with CT. 1.5 x 3 cm right ovarian cyst unchanged from previous study. RAD/Chest 1 View (Portable) IMPRESSION: Normal x-ray examination of the chest. Operations: None Procedures: Stress test Summary of Care Provided: Hospital course: The patient is a 69 year old F with past medical history of Parkinson's, hypertension, hyperlipidemia, GERD, venous insufficiency, uterine mass, ureteral mass, ovarian cyst, who presented to the emergency room with chest pressure. Patient described ongoing chest pressure and shortness of breath for about a week. She described it as difficulty taking a deep breath and that it was worse when wearing a mask, complained of cough and low-grade fever. She had reported that she had been following strict quarantine procedures. She described her chest pain as a squeezing pain, this was not worse with exertion. She also complained to the ER doctor of abdominal pain, nausea, headache. In the [facility] room the patient had a negative chest x-ray, negative EKG, negative troponin, negative COVID test. The patient was admitted to the PCU for a chest pain work-up. Troponin was negative x3, she had no events on telemetry, she underwent a stress test the following day which was negative. Patient was discharged home in stable condition. She will need follow-up with her PCP in 1 week. This patient was seen by Lalo Childers PA-C under the supervision of Doctor German. [] - Physical Exam Vitals/I&O's: Vital Signs Temp Pulse Resp BP Pulse Ox 97.6 F L 69 16 124/38 H 100 12/17/19 11:05 12/17/19 11:05 12/17/19 11:05 12/17/19 11:05 12/17/19 11:05 Oxygen Delivery Method Room Air Weight: 198 lb 8 oz Body Mass Index (BMI) 32.0 Finger Stick Blood Glucose 100 Intake and Output for Last 24 Hours 12/15/19 12/16/19 12/17/19 23:59 23:59 23:59 Intake Total 740 / 740 0 / 0 Balance 740 / 740 0 / 0 General: Alert, Oriented x3, Cooperative HEENT: Atraumatic, PERRLA, EOMI, Normocephalic Neck: Supple, No JVD, Negative Carotid Bruits Lungs: Clear to auscultation, Normal air movement Cardiovascular: Regular rate, No murmurs Abdomen: Bowel Sounds Present, Soft, Non Tender Extremities: No edema, Capillary Refill Less than 3 Seconds Skin: No rashes, No breakdown Musculoskeletal: No Tenderness to Palpation of Joints or Extremities Neurological: Cranial nerves II-XII grossly intact, - - masked facies Psych/Mental Status: Normal Affect, Appropriate, Alert and oriented to time, place, person, mood and affect Laboratory Results 12/16/19 14:01: COVID-19 (FIDELIA) Negative 12/16/19 17:20: Troponin I < 0.015 12/16/19 19:55: Troponin I < 0.015 12/16/19 23:42: Troponin I < 0.015 12/17/19 06:30: Sodium 140, Potassium 3.8, Chloride 106, Carbon Dioxide 33.0 H, Anion Gap 1 L, BUN 16, Creatinine 0.70, Estim Creat Clear Calc 50.41, Est GFR (MDRD) Af Amer 107, Est GFR (MDRD) Non-Af 88, BUN/Creatinine Ratio 22.8 H, Glucose 95, Calcium 8.8 12/17/19 06:30: WBC 4.0 L, RBC 4.70, Hgb 13.9, Hct 42.3, MCV 90.0, MCH 29.6, MCHC 32.9, RDW Std Deviation 41.1, RDW Coeff of Nabeel 12.6, Plt Count 195, MPV 9.9, Immature Gran % (Auto) 0.000, Neut % (Auto) 52.7, Lymph % (Auto) 36.7, Bollinger % (Auto) 7.3, Eos % (Auto) 2.5, Baso % (Auto) 0.8, Absolute Neuts (auto) 2.1, Absolute Lymphs (auto) 1.46, Nucleated RBC % 0 Current Medications Acetaminophen (Tylenol) 650 mg PO Q6H PRN PRN PRN Reason: Pain Score 1-10/Temp > 100.7 F Last Admin: 12/17/19 11:02 Dose: 650 mg Documented by: Aspirin (Aspirin, Baby) 81 mg PO QHS [facility] Last Admin: 12/16/19 22:28 Dose: 81 mg Documented by: Atorvastatin Calcium (Lipitor) 10 mg PO QHS [facility] Last Admin: 12/16/19 21:01 Dose: 10 mg Documented by: Carbidopa/Levodopa (Rytary Er 36.25 Mg-145 Mg Cap) 3 each PO 0900,1300,1700 [facility] Last Admin: 12/17/19 12:12 Dose: 3 each Documented by: Carbidopa/Levodopa (Rytary Er 36.25 Mg-145 Mg Cap) 2 each PO DAILY@1930 [facility] Docusate Sodium (Colace) 100 mg PO DAILY PRN PRN PRN Reason: Constipation Enoxaparin Sodium (Lovenox) 40 mg SC DAILY [facility] Hydrochlorothiazide () 12.5 mg PO DAILY [facility] Sodium Chloride () 250 mls @ 15 mls/hr IV .[id number] PRN PRN Reason: Saline Flush Sodium Chloride () 250 mls @ 15 mls/hr IV .[id number] PRN PRN Reason: Additional IVPB Infusion Lisinopril (Zestril) 10 mg PO DAILY BAILEE Nitroglycerin (Nitrostat) 0.4 mg SUBLINGUAL Q5M PRN PRN Reason: CARDIAC/CHEST PAIN Ondansetron HCl (Zofran) 4 mg IV Q8H PRN PRN PRN Reason: NAUSEA/VOMITING Ropinirole HCl (Requip Xl) 2 mg PO QHS BAILEE Sertraline HCl (Zoloft) 100 mg PO DAILY BAILEE Sodium Chloride () 10 - 40 ml IV UD PRN PRN Reason: SALINE FLUSH Discharge Diet: Low fat/ Low Cholesterol, 2000 mg Sodium Diet Discharge Activity: Return to Normal Activity Home Medications: Medications to take at Discharge Atorvastatin Calcium [Lipitor] 10 mg PO QHS 03/19/15 Lisinopril/Hydrochlorothiazide [Zestoretic 03/07.5 Tablet] 1 tablet PO DAILY 03/19/15 Carbidopa/Levodopa [Rytary ER 36.25 mg-145 mg Cap] 3 each PO TIDCM 04/08/17 Ropinirole HCl [Requip] 2 mg PO QHS 04/08/17 Sertraline HCl [Zoloft] 100 mg PO DAILY 04/08/17 Docusate Sodium [Colace] 100 mg PO DAILY PRN PRN 04/09/17 Aspirin [Aspirin, Baby] 81 mg PO QHS 12/16/19 Carbidopa/Levodopa 2 tab PO 1930 12/16/19 Primary Care Physician: Jason Dominguez MD [Primary Care Provider] - Please follow up with your Primary Care Physician in: 1 week Disposition: Home Minutes spent on discharge:: 35 Patient Condition:: Stable Medical Necessity - Tobacco Use Smoking Status: Never smoker Meaningful Use Info Meaningful Use Diagnoses (Choose all that apply): None applicable <[place] - Last Filed: 12/17/19 15:49> Discharge Date and Diagnosis - Secondary Discharge Diagnosis Chronic Problems: Chronic Problems Splenomegaly (Chronic) Neuropathy (Chronic) Obesity (BMI 30.0-34.9) (Chronic) HLD (hyperlipidemia) (Chronic) Heart murmur (Chronic) Ovarian cyst (Chronic) Glucose intolerance (impaired glucose tolerance) (Chronic) Diverticulosis (Chronic) Parkinson disease (Chronic) HTN (hypertension) (Chronic) GERD (gastroesophageal reflux disease) (Chronic) Venous insufficiency (Chronic) Uterine mass (Chronic) Frequent falls (Chronic) Ureteral mass (Chronic) Hospital Course and Treatment Summary of Care Provided: This patient was seen in conjunction with DAVIAN Gray. I have independently interviewed and examined the patient and reviewed pertinent historical, laboratory, and other data. Please refer to DAVIAN Gray note for his patient's presentation, findings, and recommendations. I have reviewed and his note and concur with his documentation The 9-year-old female past medical history of Parkinson's disease, hypertension, hyperlipidemia, GERD who comes in with chest pressure and shortness of breath ongoing for 1 week. Chest pain is worse when he takes a deep breath, and worse at max. He complains of cough and low-grade fever. He denied any contacts with a person with COVID-19 infection. His cover test was negative. Work-up and EKG was negative. Her troponins were negative. She underwent a stress test that was negative. On the day of discharge, patient was seen and examined. Denied any new complaints. Physical Exam: Gen: Comfortable, not pale, not jaundiced CVS:HS I +II, regular, no murmurs RESP: CTA GI: BS present and normal, soft, nontender, no palpable organs EXT:No edema - Physical Exam Vitals/I&O's: Vital Signs Temp Pulse Resp BP Pulse Ox 97.6 F L 84 16 113/55 L 100 12/17/19 11:05 12/17/19 15:00 12/17/19 11:05 12/17/19 15:35 12/17/19 11:05 Oxygen Delivery Method Room Air Weight: 90.038 kg Body Mass Index (BMI) 32.0 Finger Stick Blood Glucose 100 Intake and Output for Last 24 Hours 12/15/19 12/16/19 12/17/19 23:59 23:59 23:59 Intake Total 740 / 740 240 / 240 Balance 740 / 740 240 / 240 Laboratory Results 12/16/19 14:01: COVID-19 (FIDELIA) Negative 12/16/19 17:20: Troponin I < 0.015 12/16/19 19:55: Troponin I < 0.015 12/16/19 23:42: Troponin I < 0.015 12/17/19 06:30: Sodium 140, Potassium 3.8, Chloride 106, Carbon Dioxide 33.0 H, Anion Gap 1 L, BUN 16, Creatinine 0.70, Estim Creat Clear Calc 50.41, Est GFR (MDRD) Af Amer 107, Est GFR (MDRD) Non-Af 88, BUN/Creatinine Ratio 22.8 H, Glucose 95, Calcium 8.8 12/17/19 06:30: WBC 4.0 L, RBC 4.70, Hgb 13.9, Hct 42.3, MCV 90.0, MCH 29.6, MCHC 32.9, RDW Std Deviation 41.1, RDW Coeff of Nabeel 12.6, Plt Count 195, MPV 9.9, Immature Gran % (Auto) 0.000, Neut % (Auto) 52.7, Lymph % (Auto) 36.7, Bollinger % (Auto) 7.3, Eos % (Auto) 2.5, Baso % (Auto) 0.8, Absolute Neuts (auto) 2.1, Absolute Lymphs (auto) 1.46, Nucleated RBC % 0 Current Medications Acetaminophen (Tylenol) 650 mg PO Q6H PRN PRN PRN Reason: Pain Score 1-10/Temp > 100.7 F Last Admin: 12/17/19 11:02 Dose: 650 mg Documented by: Aspirin (Aspirin, Baby) 81 mg PO QHS [facility] Last Admin: 12/16/19 22:28 Dose: 81 mg Documented by: Atorvastatin Calcium (Lipitor) 10 mg PO QHS [facility] Last Admin: 12/16/19 21:01 Dose: 10 mg Documented by: Carbidopa/Levodopa (Rytary Er 36.25 Mg-145 Mg Cap) 3 each PO 0900,1300,1700 [facility] Last Admin: 12/17/19 12:12 Dose: 3 each Documented by: Carbidopa/Levodopa (Rytary Er 36.25 Mg-145 Mg Cap) 2 each PO DAILY@1930 [facility] Docusate Sodium (Colace) 100 mg PO DAILY PRN PRN PRN Reason: Constipation Enoxaparin Sodium (Lovenox) 40 mg SC DAILY [facility] Last Admin: 12/17/19 15:30 Dose: Not Given Documented by: Hydrochlorothiazide () 12.5 mg PO DAILY [facility] Last Admin: 12/17/19 15:38 Dose: 12.5 mg Documented by: Sodium Chloride () 250 mls @ 15 mls/hr IV .[id number] PRN PRN Reason: Saline Flush Sodium Chloride () 250 mls @ 15 mls/hr IV .[id number] PRN PRN Reason: Additional IVPB Infusion Lisinopril (Zestril) 10 mg PO DAILY [facility] Last Admin: 12/17/19 15:38 Dose: 10 mg Documented by: Nitroglycerin (Nitrostat) 0.4 mg SUBLINGUAL Q5M PRN PRN Reason: CARDIAC/CHEST PAIN Ondansetron HCl (Zofran) 4 mg IV Q8H PRN PRN PRN Reason: NAUSEA/VOMITING Ropinirole HCl (Requip Xl) 2 mg PO QHS [facility] Sertraline HCl (Zoloft) 100 mg PO DAILY [facility] Sodium Chloride () 10 - 40 ml IV UD PRN PRN Reason: SALINE FLUSH OBSV E&M: 89396 Observation care discharge
[2019-12-17] MEDS: hydroCHLOROthiazide 12.5mg 12.5 MG PO (15:38)
[2019-12-17] MEDS: Lisinopril 10 MG Tablet PO (15:38)
--- NOTE | 2019-12-17 16:24 | CASEMGMT ---
RN CM NOTE: To room to talk with patient. Introduced self and role of RN CM. Reviewed LUCAS form w/pt and questions answered. LUCAS form signed by pt, copy made and placed on chart, and original given to pt. Cecily WHEELER RN CM
== END 2019-12-17 14:24 | disposition home or self-care (01) ==
LOC: ED 12:28 → PCU 14:30 → ICU 12-17 08:53 → PCU 12-17 08:53
PROVIDERS: Admitting Provider Family Medicine; Emergency Provider Emergency Medicine; PCP Family Medicine; Visit Provider Internal Medicine
DX: R07.89 Other chest pain (principal); I10 Essential (primary) hypertension; E78.5 Hyperlipidemia, unspecified; E66.9 Obesity, unspecified; F41.9 Anxiety disorder, unspecified; G20 Parkinson's disease; K21.9 Gastro-esophageal reflux disease without esophagitis; G62.9 Polyneuropathy, unspecified; R06.02 Shortness of breath; R51 Headache; R10.32 Left lower quadrant pain; R07.1 Chest pain on breathing; R16.1 Splenomegaly, not elsewhere classified; G47.33 Obstructive sleep apnea (adult) (pediatric); R73.03 Prediabetes; Z79.899 Other long term (current) drug therapy; Z79.82 Long term (current) use of aspirin; Z68.32 Body mass index [BMI] 32.0-32.9, adult; Z86.73 Personal history of transient ischemic attack (TIA), and cerebral infarction without residual deficits
CPT/HCPCS: 36415; 71045; 74177; 78452; 80048; 80053; 81001; 83690; 84484; 85025; 87635; 93005; 93017; 96361; 96374; 97162; 97166; 99218; 99282; A9500; G2023; J7040; Q9967; A4216; G0378; J2405; J2785; U0003

== ENCOUNTER 2021-03-23 18:58 | Emergency (ER) | payer MEDICARE, SELFPAY ==
[2015-11-23 13:00] VITALS: BMI 31.4
[2021-03-23 18:59] VITALS: BP 133/60; PULSE 63; RESP 18; TEMP 36; O2SAT 97; BMI 32.9
--- NOTE | 2021-03-23 21:02 | ED.VIS.LOWEX ---
HPI History of Present Illness Chief Complaint: Fall Narrative Narrative: 70-year-old female with laceration to the right lower leg. This is just adjacent to the lower tibia. Patient states he walks with a Rollator and she tripped over her cane that was in the way and she fell striking her right leg on the edge of the cane where there is a metal hook which cut her leg. Last tetanus was within 5 years ago. Patient's ambulation is at baseline. Her put a dressing on this and brought her to the ER. She denies any other injury. [facility] Medical History Depressed Parkinson disease Restless leg Home Medications atorvastatin 10 mg PO QHS 03/19/15 [History Last Taken 12/15/19] lisinopril-hydrochlorothiazide [Zestoretic] 1 tab PO DAILY 03/19/15 [History Last Taken 12/16/19] Rytary 3 ea PO TIDCM 04/08/17 [History Last Taken 12/16/19] ropinirole [Requip] 2 mg PO QHS 04/08/17 [History Last Taken 12/15/19] sertraline 100 mg PO DAILY 04/08/17 [History Last Taken 12/16/19] docusate sodium [DOK] 100 mg PO DAILY PRN PRN 04/09/17 [History Last Taken 03/27/17 09:00] Carbidopa/Levodopa 2 tab PO 1930 12/16/19 [History Last Taken 12/15/19] aspirin 81 mg PO QHS 12/16/19 [History Last Taken 12/15/19] Allergy/AdvReac Type Severity Reaction Status Date / Time esomeprazole magnesium Allergy Unknown Verified 03/23/21 18:58 [From Nexium] azithromycin AdvReac Nausea/Vom/ Verified 03/23/21 18:58 Diarrhea Social History Smoking Status: Never smoker ROS ROS ED Constitutional Constitutional ED: Denies chills, fever(s) or sweats Eyes Eyes: Denies blurry vision or change in vision ENT ENT ED: Denies ear pain or sore throat Cardiovascular Cardiovascular: Denies chest pain, palpitations or racing heartbeat Respiratory/Chest Respiratory/Chest: Denies cough, dyspnea or sputum Gastrointestinal Gastrointestinal: Denies abdominal pain, constipation, diarrhea, nausea or vomiting Genitourinary Genitourinary ED: Denies dysuria, hematuria or urinary frequency Musculoskeletal Musculoskeletal: Denies arthralgias, myalgias or neck pain Integumentary Reports other Details: Laceration to right lower leg ; Denies abscess or rash Neurologic Neurologic: Denies headache(s), paresthesias or weakness Psychiatric Psychiatric: Denies anxiety, depression, suicidal ideation or suicidal thoughts Endocrine Endocrinology: Denies polydipsia or polyuria EXAM Physical Exam Const Vital Signs: 03/23/21 18:59 03/23/21 20:56 Temperature 96.8 F L Temperature Source Temporal Pulse Rate 63 Respiratory Rate 18 Respiratory Effort Normal Non-Labored Respiratory Depth Normal Respiratory Pattern Normal Blood Pressure 133/60 H Blood Pressure Mean 84 Pulse Ox 97 Oxygen Delivery Method Room Air Room Air Positive well nourished General Appearance ED: NAD HEENT Reports moist mucous membranes normocephalic and atraumatic Cardio regular rate and regular rhythm Extremity Extremity Narrative: L-shaped laceration with each aspect being 1.5 cm. Bleeding is controlled. Skin is very thin. No bony tenderness. No sign of infection. Psych mental status grossly normal Skin Skin Narrative: As described above. MDM MDM MDM Narrative Medical decision making narrative: Patient has a laceration to the right lower leg. Is fairly superficial and her skin is very thin and I do not believe that I can suture this without tearing her skin. The bleeding is well controlled. I will have the the wound cleaned and will place a dressing over this after approximating the wound margins. Patient does not need tetanus immunization. Patient given wound care instructions. She will be discharged home to the care of her . Impression: 1. Mechanical fall 2. Right lower extremity laceration 3 cm Discharge Plan Triage Chief Complaint: Fall ED Provider: Kumar Olmos Dx/Rx/DC Orders Instructions: ED Mechanical Fall, ED Laceration Small or ... Prescriptions: No Action atorvastatin 10 MG tablet 10 mg PO QHS RF: 0 lisinopril-hydrochlorothiazide [Zestoretic] 1 TABLET tablet 1 tab PO DAILY RF: 0 sertraline 100 MG tablet 100 mg PO DAILY RF: 0 ropinirole [Requip] 4 MG tablet 2 mg PO QHS RF: 0 Rytary 1 EACH capsule, extended release 3 ea PO TIDCM RF: 0 docusate sodium [DOK] 100 MG capsule 100 mg PO DAILY PRN PRN (Reason: Constipation) RF: 0 Carbidopa/Levodopa 2 tab PO 1929 RF: 0 aspirin 81 MG tablet,chewable 81 mg PO QHS RF: 0 Primary Care Provider: Jason Dominguez Referrals: Jason Dominguez MD [Primary Care Provider] - Disposition Disposition: Home, Self Care
[2021-03-23 21:11] VITALS: BP 124/71; PULSE 60; RESP 18; O2SAT 94
== END 2021-03-23 21:32 | disposition home or self-care (01) ==
LOC: ED 21:20
PROVIDERS: Emergency Provider Student in an Organized Health Care Education/Training Program; PCP Family Medicine
DX: S81.811A Laceration without foreign body, right lower leg, initial encounter (principal); W18.09XA Striking against other object with subsequent fall, initial encounter; Y93.01 Activity, walking, marching and hiking; Y92.9 Unspecified place or not applicable; Y99.8 Other external cause status; G20 Parkinson's disease; F32.A Depression, unspecified; Z79.82 Long term (current) use of aspirin; Z79.899 Other long term (current) drug therapy
CPT/HCPCS: 99282

== ENCOUNTER → 2024-01-01 | Outpatient (CLI) | payer MEDICARE, SELFPAY ==
[2015-11-23 13:00] VITALS: BMI 31.4
--- NOTE | 2024-01-01 08:38 | AAVD_ITS ---
Reason For Study: s/p bilateral iliac vein stents Inferior Vena Cava Proximal inferior vena cava measures 1.69 x 1.54 cm. in the cross-sectional axis. Proximal inferior vena cava measures 1.70 cm. in the longitudinal axis. Mid inferior vena cava measures 1.64 x 1.78 cm. in the cross-sectional axis. Mid inferior vena cava measures 1.68 cm. in the longitudinal axis. Distal inferior vena cava measures 1.70 x 1.73 cm. in the cross-sectional axis. Distal inferior vena cava measures 1.68 cm. in the longitudinal axis. The inferior vena cava has spontaneous, phasic flow throughout. Left Common Iliac Vein Left common iliac vein measures 1.32 x 1.30 cm. in the cross-sectional axis. Left common iliac vein measures 1.36 cm. in the longitudinal axis. The left common iliac vein has spontaneous, phasic flow throughout. Stent noted in the Left common iliac vein. Right Common Iliac Vein Right common iliac vein measures 1.37 x 1.25 cm. in the cross-sectional axis. Right common iliac vein measures 1.31 cm. in the longitudinal axis. The right common iliac vein has spontaneous, phasic flow throughout. Stent noted in the Right common iliac vein. Procedure Aorta IVC Iliac vasculature or bypass grafts [id number]. Exam performed in department. VL/Abd Aortic/IVC Duplex scan Interpretation Summary Patent inferior vena cava and bilateral iliac vein stents with normal venous fl ow pattern. Ordering Physician: Tierney Resendiz Referring Physician: Tierney Resendiz Performed By: Don Jones RVT and Student
== END | disposition home or self-care (01) ==
PROVIDERS: PCP Family Medicine; Referring Provider Physician Assistant; Visit Provider Physician Assistant
DX: Z48.812 Encounter for surgical aftercare following surgery on the circulatory system (principal); I87.1 Compression of vein
CPT/HCPCS: 93978

== ENCOUNTER 2024-02-07 19:16 | Emergency (ER) | payer MEDICARE, SELFPAY ==
[2015-11-23 13:00] VITALS: BMI 31.4
[2024-02-07 19:17] VITALS: BP 160/71; PULSE 68; RESP 16; TEMP 36.6; O2SAT 93
--- NOTE | 2024-02-07 19:50 | EX.ED.DYSGE1 ---
HPI History of Present Illness Chief Complaint: Complaint Informant: patient and family Narrative Narrative: 73-year-old female states she was sent here by her doctor because of a urinalysis result that shows she has an infection and only IV antibiotics will help. She is anticipating being admitted for this. When asked about her main complaints right now, she starts talking about some blurry vision and a facial rash that she saw specialist in [place] for. She states she has had some dysuria lately. She had an urine infection a couple weeks ago, but she cannot tell me any details about why 1 was repeated a couple days ago, what antibiotic she was on then, etc. [facility] Medical History SOB (shortness of breath) Valvular heart disease Type 2 diabetes mellitus CANDIDA (obstructive sleep apnea) Osteopenia Mixed incontinence Kidney disease Dysphagia Hydronephrosis Anxiety Festinating gait Endometriosis Diverticulosis Decreased strength, endurance, and mobility Decreased functional activity tolerance Coordination impairment Cervical pain Carotid stenosis Bradykinesia Bilateral lower extremity edema Chronic constipation Abnormal CT scan Restless leg Depressed Parkinson disease Home Medications ?Medication ?Instructions ?Recorded ?Last Taken ?Type atorvastatin 10 mg tablet 10 mg PO QHS 03/19/15 12/15/19 History sertraline 100 mg tablet 100 mg PO DAILY 04/08/17 12/16/19 History clopidogrel 75 mg tablet 75 mg PO DAILY 09/17/22 Unknown History rasagiline 1 mg tablet (Azilect) 1 mg PO DAILY 09/17/22 Unknown History aspirin 81 mg tablet,delayed 81 mg PO DAILY 12/17/23 Unknown History release (Adult Low Dose Aspirin) carbidopa ER 36.25 mg-levodopa 145 1 cap PO .QID 12/17/23 Unknown History mg capsule,extended release (Rytary) furosemide 20 mg tablet (Lasix) 20 mg PO DAILY 12/17/23 Unknown History Allergy/AdvReac Type Severity Reaction Status Date / Time erythromycin base Allergy UNK Verified 02/07/24 19:19 esomeprazole magnesium (From Allergy Unknown Verified 02/07/24 19:19 Nexium) azithromycin AdvReac Nausea/Vom/ Verified 02/07/24 19:19 Diarrhea Family History Father Hypertension Alzheimer disease Mother Alzheimer disease Hypertension Macular degeneration Sister Diabetes Hypertension Depression Asthma Surgical History H/O ureteroscopy History of bilateral oophorectomy Social History Smoking Status: Never smoker alcohol intake: current ROS ROS ED Constitutional Constitutional ED: Denies chills or fever(s) Eyes Eyes: Reports blurry vision; Denies diplopia ENT ENT ED: Denies rhinorrhea or sore throat Cardiovascular Cardiovascular: Denies chest pain or palpitations Respiratory/Chest Respiratory/Chest: Denies cough or dyspnea Gastrointestinal Gastrointestinal: Denies abdominal pain, diarrhea, nausea or vomiting Genitourinary Genitourinary ED: Reports dysuria; Denies hematuria Musculoskeletal Musculoskeletal: Reports back pain; Denies neck pain Integumentary Reports rash; Denies abscess Neurologic Neurologic: Reports abnormal gait and tremor(s); Denies headache(s), paresthesias or weakness Psychiatric Psychiatric: Denies suicidal thoughts EXAM Physical Exam Const Vital Signs: 02/07/24 19:17 02/07/24 20:45 02/07/24 22:00 Temperature 97.8 F 97.7 F L 97.6 F L Temperature Source Temporal Oral Oral Pulse Rate 68 86 66 Respiratory Rate 16 20 H 20 H Blood Pressure 160/71 H 161/69 H 157/70 H Blood Pressure Mean 100 99 99 Pulse Ox 93 91 90 Oxygen Delivery Method Room Air Room Air Room Air Positive well nourished and well developed General Appearance ED: well developed and NAD HEENT Reports moist mucous membranes HEENT Narrative: no facial rash normocephalic and atraumatic Eyes PERRL and EOMs intact bilaterally Neck full ROM and supple Resp normal respiratory effort and clear to auscultation bilaterally Cardio regular rate, regular rhythm and no murmurs GI non-tender and non-distended Auscultation: normoactive bowel sounds Palpation: soft Back/Spine no CVA tenderness General Back: other FROM Extremity normal to inspection General Extremety ED: Negative for edema, pulses abnormal or tenderness General Extremity: Negative for edema or pulses abnormal Neuro oriented x3, CN's II-XII intact bilaterally and no sensory deficits noted Sensorium / Orientation: awake and alert Motor Exam: strength 5/5 throughout Psych mental status grossly normal Skin no rashes or lesions noted and no wounds MDM MDM MDM Narrative Medical decision making narrative: Patient was sent with paperwork that shows a urinalysis positive for coag negative staph that is low and E. coli that is medium, 93% E. coli, and there is a list of approximately 40 antibiotics that it is tested for, 3 of them are designated as first-line agents and recommended for this organism, ertapenem, imipenem, meropenem. However there are multiple others that are designated as potential alternative agents that could be used as second line therapy. These include fosfomycin, but no other oral agents. I ordered a dose of meropenem 1 g, while obtaining labs. Her labs are all normal including a lactate and white blood count. Her vital signs are normal. She is not septic. She is well-appearing. We do have fosfomycin available, and typically it requires a single dose of 3 g orally. Therefore she was given a dose of this, and I feel it is reasonable for her to be discharged back to assisted living to follow-up with her doctor. History & Record Review Additional record(s) reviewed:: Prior outpatient record Lab Data Attestation: I reviewed the patient's lab results. Labs: Laboratory Results - last 24 hr 02/07/24 02/07/24 20:15 20:30 WBC 5.7 RBC 4.64 Hgb 13.2 Hct 41.7 MCV 89.9 MCH 28.4 MCHC 31.7 L RDW Std Deviation 43.5 RDW Coeff of Nabeel 13.2 Plt Count 191 MPV 10.4 Immature Gran % (Auto) 0.200 Neut % (Auto) 64.6 Lymph % (Auto) 23.9 Wirt % (Auto) 8.0 Eos % (Auto) 2.6 Baso % (Auto) 0.7 Absolute Neuts (auto) 3.7 Absolute Lymphs (auto) 1.37 Nucleated RBC % 0 Sodium 141 Potassium 3.7 Chloride 105 Carbon Dioxide 31.0 Anion Gap 5 BUN 21 H Creatinine 0.80 Estim Creat Clear Calc 73.19 Est GFR (MDRD) Af Amer 91 Est GFR (MDRD) Non-Af 75 BUN/Creatinine Ratio 26.4 H Glucose 105 Lactic Acid 0.9 Calcium 9.5 Urine Color Yellow Urine Clarity Sl. Cloudy Urine pH 6.0 Ur Specific [place] 1.020 Urine Protein Negative Urine Glucose (UA) Normal Urine Ketones 5 H Urine Occult Blood Negative Urine Nitrite Negative Urine Bilirubin Negative Urine Urobilinogen Normal Ur Leukocyte Esterase 100 H Urine RBC 0 SEEN Urine WBC 5-10 SEEN Ur Squamous Epith Cells 0-5 SEEN Urine Bacteria 1+ Urine Mucus 0 SEEN Discharge Plan Triage Chief Complaint: Complaint ED Provider: Isauro De Los Santos Dx/Rx/DC Orders Clinical Impression: Acute cystitis without hematuria Instructions: ED Cystitis Female Adult Prescriptions: No Action rasagiline [Azilect] 1 mg tablet 1 mg PO DAILY clopidogrel 75 mg tablet 75 mg PO DAILY furosemide [Lasix] 20 mg tablet 20 mg PO DAILY Rytary 36.25-145 mg capsule, extended release 1 cap PO .QID Rx Instructions: divide evenly over waking hours aspirin [Adult Low Dose Aspirin] 81 mg tablet,delayed release (DR/EC) 81 mg PO DAILY atorvastatin 10 MG tablet 10 mg PO QHS Patient Comments: cholesterol sertraline 100 MG tablet 100 mg PO DAILY Primary Care Provider: Jason Dominguez Referrals: Jason Dominguez MD [Primary Care Provider] - 3-5 Days Print Language: Albanian Disposition Disposition: Home, Self Care
[2024-02-07 20:32] LABS: Mucous, Urine 0 SEEN /hpf (<or=2+); Red Blood Cells-Urine 0 SEEN /hpf (0-5)
[2024-02-07 20:36] LABS: Color, Urine Yellow (Yellow); Glucose, Dipstick Normal (Normal); Ketone-Dipstick 5 mg/dl (Negative); Leukocyte Esterase-Dipstick 100 /ul (Negative); Nitrite-Dipstick Negative (Negative); Occult Blood-Urine Negative /ul (Negative); Protein-Dipstick Negative (Negative); Urine Bilirubin Dipstick Negative (Negative); Urine Clarity Sl. Cloudy (Clear); Urine Urobilinogen Normal (Normal)
[2024-02-07 20:39] VITALS: BMI 33.2
[2024-02-07] MEDS: Meropenem 1 GM in 0.9% Normal Saline (100mL MB+) 100 ML IV (20:39)
[2024-02-07 20:42] LABS: Absolute Lymphocyte Count 1.37 X10^3/uL (0.83-4.51); Absolute Neutrophil Count 3.7 X10^3/uL (2.0-7.7); Basophil# 0.04 X10^3/uL; Basophil% 0.7 % (0-1); Eosinophil# 0.15 X10^3/uL; Eosinophils% 2.6 % (0-5); Hematocrit 41.7 % (37-47); Hemoglobin 13.2 g/dL (12.0-15.0); Lymphocyte # 1.37 X10^3/ul (0.83-4.51); Lymphocyte % 23.9 % (19-41); Mean Corp Hgb Conc 31.7 g/dL (32-36); Mean Corpuscular Hgb 28.4 pg (27.0-32.0); Mean Corpuscular Volume 89.9 fL (81-99); Mean Platelet Vol. 10.4 fl (6.2-12.0); Monocyte# 0.46 X10^3/uL; NRBC Flagged by Analyzer 0 % (0-5); Neutrophil % 64.6 % (47-70); Platelet Count 191 K/mm3 (150-450); RBC Distribution Width CV 13.2 % (11.6-14.6); RBC Distribution Width SD 43.5 fl (35.1-43.9); Red Blood Count 4.64 M/mm3 (4.2-5.4); White Blood Count 5.7 K/mm3 (4.4-11.0)
[2024-02-07 20:45] VITALS: BP 161/69; PULSE 86; RESP 20; TEMP 36.5; O2SAT 91
[2024-02-07 20:55] LABS: Anion Gap 5 (5-15); BUN 21 mg/dL (7-18); BUN/Creat Ratio 26.4 RATIO (10-20); Calcium,Total 9.5 mg/dL (8.5-10.1); Chloride 105 mmol/L (98-107); EST Glomerular Filtration Rate 75 mL/min (>60); Est Glom Filt Rate - Afr Amer 91 mL/min (>60); Estimated Creatinine Clearance 73.19 ml/min; Glucose 105 mg/dL (74-106); Potassium 3.7 mmol/L (3.5-5.1); Sodium Level 141 mmol/L (136-145)
[2024-02-07] MEDS: FOSFOMYCIN TROMETHAMINE 3 GM PACKET PO (21:01)
[2024-02-07 21:04] LABS: White Blood Cells 5-10 SEEN /hpf (0-5)
[2024-02-07 21:05] LABS: Bacteria 1+ /hpf (None Seen); Squamous Epithelial Cells - UA 0-5 SEEN /hpf (5-10)
[2024-02-07 21:08] LABS: Lactic Acid 0.9 mmol/L (0.4-1.9)
[2024-02-07 22:00] VITALS: BP 157/70; PULSE 66; RESP 20; TEMP 36.4; O2SAT 90
[2024-02-07 23:00] VITALS: BP 142/62; PULSE 63; RESP 18
== END 2024-02-08 00:48 | disposition home or self-care (01) ==
PROVIDERS: Emergency Provider Emergency Medicine; PCP Family Medicine; Visit Provider Emergency Medicine
DX: N30.00 Acute cystitis without hematuria (principal); E11.9 Type 2 diabetes mellitus without complications; G47.33 Obstructive sleep apnea (adult) (pediatric); F41.9 Anxiety disorder, unspecified; Z79.899 Other long term (current) drug therapy
CPT/HCPCS: 80048; 81001; 83605; 85025; 96365; 99282; J2185; A4216

== ENCOUNTER 2024-03-05 08:59 | Day surgery (SDC) | payer MEDICARE, SELFPAY ==
[2015-11-23 13:00] VITALS: BMI 31.4
[2024-01-28 08:20] VITALS: BMI 32.3
[2024-03-05 09:29] LABS: Hemoglobin 13.5 g/dL (12.0-15.0); Mean Corp Hgb Conc 31.4 g/dL (32-36); Mean Corpuscular Hgb 28.6 pg (27.0-32.0); Mean Corpuscular Volume 91.1 fL (81-99); Mean Platelet Vol. 10.1 fl (6.2-12.0); Platelet Count 203 K/mm3 (150-450); RBC Distribution Width CV 13.2 % (11.6-14.6); RBC Distribution Width SD 43.9 fl (35.1-43.9); Red Blood Count 4.72 M/mm3 (4.2-5.4); White Blood Count 4.3 K/mm3 (4.4-11.0)
[2024-03-05 09:41] LABS: Anion Gap 4 (5-15); BUN 21 mg/dL (7-18); BUN/Creat Ratio 25.9 RATIO (10-20); Calcium,Total 9.1 mg/dL (8.5-10.1); Chloride 110 mmol/L (98-107); Creatinine, Serum 0.81 mg/dL (0.55-1.02); EST Glomerular Filtration Rate 74 mL/min (>60); Est Glom Filt Rate - Afr Amer 89 mL/min (>60); Estimated Creatinine Clearance 71.23 ml/min; Glucose 116 mg/dL (74-106); Potassium 3.8 mmol/L (3.5-5.1); Sodium Level 144 mmol/L (136-145)
--- NOTE | 2024-03-05 10:04 | PCM.HP.STD ---
HPI - General HPI Narrative JEROME CORREA, is a 73 F who presents with history of prior bilateral iliac vein stents without history of thrombus. She had recent duplex in [place] that suggested abnormal flow pattern. She presents for venogram to further assess. [facility] Medical History SOB (shortness of breath) Valvular heart disease Type 2 diabetes mellitus CANDIDA (obstructive sleep apnea) Osteopenia Mixed incontinence Kidney disease Dysphagia Hydronephrosis Anxiety Festinating gait Endometriosis Diverticulosis Decreased strength, endurance, and mobility Decreased functional activity tolerance Coordination impairment Cervical pain Carotid stenosis Bradykinesia Bilateral lower extremity edema Chronic constipation Abnormal CT scan Restless leg Depressed Parkinson disease Home Medications ?Medication ?Instructions ?Recorded ?Last Taken ?Type atorvastatin 10 mg tablet 10 mg PO QHS 03/19/15 12/15/19 History sertraline 100 mg tablet 100 mg PO DAILY 04/08/17 03/05/24 History clopidogrel 75 mg tablet 75 mg PO DAILY 09/17/22 03/05/24 History rasagiline 1 mg tablet (Azilect) 1 mg PO DAILY 09/17/22 03/05/24 History aspirin 81 mg tablet,delayed 81 mg PO DAILY 12/17/23 03/05/24 History release (Adult Low Dose Aspirin) carbidopa ER 36.25 mg-levodopa 145 1 cap PO .QID 12/17/23 03/05/24 History mg capsule,extended release (Rytary) furosemide 20 mg tablet (Lasix) 20 mg PO DAILY 12/17/23 Unknown History amantadine HCl 100 mg capsule 100 mg PO DAILY 02/07/24 03/05/24 History famotidine 40 mg tablet 40 mg PO DAILY 02/07/24 03/05/24 History Allergy/AdvReac Type Severity Reaction Status Date / Time erythromycin base Allergy UNK Verified 02/07/24 19:19 esomeprazole magnesium (From Allergy Unknown Verified 02/07/24 19:19 Nexium) azithromycin AdvReac Nausea/Vom/ Verified 02/07/24 19:19 Diarrhea Family History Father Hypertension Alzheimer disease Mother Alzheimer disease Hypertension Macular degeneration Sister Diabetes Hypertension Depression Asthma Surgical History H/O ureteroscopy History of bilateral oophorectomy Social History Smoking Status: Never smoker alcohol intake: current ROS Constitutional Constitutional: Denies chills, fever(s), frequent falls, lethargy or weakness Eyes Eyes: Denies blind spots, change in vision or loss of vision ENT HEENT: Denies bleeding gums, hoarseness or sore throat Cardiovascular Cardiovascular: Denies abdominal pain, bluish discoloration of hand/feet, chest pain with activity, claudication, cold extremities, cyanosis, dyspnea on exertion, erythema on extremities, irregular heart rhythm, leg edema, leg ulcers, numbness in extremities or weakness in extremities Respiratory/Chest Respiratory/Chest: Denies cough, excessive phlegm production, shortness of breath at rest, shortness of breath with exertion or wheezing Gastrointestinal Gastrointestinal: Denies anorexia, change in stool character, constipation, diarrhea, melena or rectal bleeding Genitourinary Genitourinary: Denies dysuria or hematuria Musculoskeletal Musculoskeletal: Denies abnormal gait Integumentary Integumentary: Reports other Details: ; Denies erythema, non-healing lesions or wounds Neurologic Neurologic: Denies abnormal speech, focal weakness, headache(s), loss of vision, numbness, paresthesias or sensory deficit Hematologic/Lymphatic Hematologic/Lymphatic: Denies easy bleeding, easy bruising or lymphadenopathy Vital Signs Vital Signs Vital Signs: Weight Weight: 200 lb Body Mass Index (BMI) 32.3 Physical Exam Const alert, oriented x3, no apparent distress and healthy appearing General Appearance: cooperative; Negative for combative or lethargic Orientation / Consciousness: awake Exam Limitations: no limitations HEENT Head and Scalp: normocephalic and atraumatic Eyes EOMs intact bilaterally General Eye: normal appearance of both eyes Neck full ROM, no lymphadenopathy and thyroid normal General: trachea midline; Negative for tenderness Thyroid: thyroid normal Resp normal respiratory effort and no use of accessory muscles Effort and Inspection: Negative for labored, stridor or audible wheezes Cardio regular rate and regular rhythm Back/Spine Cervical Spine: cervical ROM normal Extremity full ROM, normal capillary refill and no clubbing, cyanosis or edema Skin no rashes or lesions noted and no wounds Neuro oriented x3, CN's II-XII intact bilaterally, no focal motor deficits and no sensory deficits noted Psych thought process normal, cooperative, affect normal, speech normal and activity/motor behavior normal Results Lab / Micro Data 03/05/24 09:05 03/05/24 09:05 Labs: Laboratory Results - last 24 hr 03/05/24 09:05: WBC 4.3 L, RBC 4.72, Hgb 13.5, Hct 43.0, MCV 91.1, MCH 28.6, MCHC 31.4 L, RDW Std Deviation 43.9, RDW Coeff of Nabeel 13.2, Plt Count 203, MPV 10.1, Sodium 144, Potassium 3.8, Chloride 110 H, Carbon Dioxide 30.0, Anion Gap 4 L, BUN 21 H, Creatinine 0.81, Estim Creat Clear Calc 71.23, Est GFR (MDRD) Af Amer 89, Est GFR (MDRD) Non-Af 74, BUN/Creatinine Ratio 25.9 H, Glucose 116 H, Calcium 9.1 Assessment & Plan Assessment/Plan (1) Stenosis of iliac vein: PLAN: -venogram
--- NOTE | 2024-03-05 10:49 | OP.PCM_ITS ---
Report of Operation Date of Procedure: 03/05/24 Pre-Operative Diagnosis: Prior iliac vein stents, bilateral Post-Operative Diagnosis: same Surgery/Procedure Performed:: venogram IVC IVUS IVC, bilateral common/iliac veins Surgeon: Andrea Fair Type of Anesthesia: Local and Sedation,Conscious Estimated Blood Loss (mL): 3 Description of Procedure: HPI: Patient is a 73-year-old female with previous bilateral iliac vein stents placed at an outside facility. She has been followed with surveillance duplex imaging which most recently at this outside facility suggest abnormal flow pattern and the recommendation was for venogram evaluation. She has since returned to [place] from out of town and presents now for venogram to assess her prior stents. Description of procedure: Upon obtaining form consent and verification correct patient procedure site patient taken to the Manager Of Customer Billing where she was positioned prepped and draped in usual sterile fashion. Timeouts performed conscious sedation administered Versed and fentanyl. Skin overlying the right common femoral vein was anesthetized 1% lidocaine the vessel accessed with a micropuncture needle wire under ultrasound guidance. This exchanged for micropuncture sheath routine injection ilio caval venogram was performed revealing satisfactory positioning no extravasation dissection. This also revealed brisk contrast transit across the previously placed external iliac vein stent no significant pelvic wall collaterals. This also revealed the contralateral common iliac vein stent was overlying the confluence and the majority of the lumen of the right common iliac vein. Next Bentson wire was advanced and the micropuncture sheath exchanged for an 8 Mauritian sheath. Through the 8 Mauritian sheath intravascular ultrasound probe was advanced and recorded pullback performed of the IVC, right common iliac vein, right external iliac vein. This revealed satisfactory right external iliac vein stent with no residual compression, good wall apposition, and no evidence of intimal hyperplasia or thrombus within the stent. Next skin overlying the left common femoral vein was anesthetized 1% lidocaine the vessel accessed with a micropuncture needle wire. This then exchanged out for micropuncture sheath which injection ilio caval venogram performed revealing brisk contrast transit across the previously placed stents. Through the micropuncture sheath Bentson wire was advanced and the micropuncture sheath exchanged for an 8 Maur[place] sheath. Intravascular ultrasound probe was then advanced and recorded pullback per formed of the IVC, left common iliac vein, left external iliac vein. This revealed stent protruding into the IVC overlying the right common iliac origin but otherwise in good stent wall apposition with no residual compression and no intimal hyperplasia or in-stent thrombus. Despite the unique placement of the left iliac vein stent we felt that there were no overt indications for intervention as this stent has performed well for 3 years so no further angioplasty or stenting was felt to be indicated. Wires and catheters then withdrawn and the 8 Maur[place] sheaths withdrawn followed by 5 minutes of manual pressure with satisfactory stasis noted. The patient was taken recovery area for bedrest prior to discharge to home.
== END 2024-03-05 13:40 | disposition home or self-care (01) ==
PROVIDERS: PCP Family Medicine; Referring Provider Surgery Trauma Surgery; Visit Provider Surgery Trauma Surgery
DX: I87.1 Compression of vein (principal); E11.9 Type 2 diabetes mellitus without complications; G47.33 Obstructive sleep apnea (adult) (pediatric); F41.9 Anxiety disorder, unspecified; Z79.899 Other long term (current) drug therapy; Z79.82 Long term (current) use of aspirin
CPT/HCPCS: 36010; 36415; 37252; 37253; 75825; 76937; 80048; 85027; 99152; 99153; C1753; C1769; C1894; Q9967

== ENCOUNTER 2024-12-17 13:44 | Emergency (ER) | payer MEDICARE, SELFPAY ==
[2015-11-23 13:00] VITALS: BMI 31.4
[2024-12-17 13:46] VITALS: BP 157/79; PULSE 71; RESP 20; TEMP 36.8; O2SAT 96
--- NOTE | 2024-12-17 14:48 | EX.ED.DYSGE1 ---
HPI <DAVIAN Johnson - Last Filed: 12/17/24 17:23> History of Present Illness Chief Complaint: General Illness Narrative Narrative: 74-year-old female with Parkinson's, lymphedema presents with high blood pressure. She developed a wound on her right leg due to lymphedema swelling and had her first wound care appointment yesterday. Her blood pressure was over 200 but they rechecked it with her jacket off and it was 169 over something. He said at home health care nurse out today to establish home wound care and her systolic pressure was over 200 again so she recommended she come in. She was on blood pressure medication years ago but was having low pressures so it was discontinued. Patient is also concern for UTI because she has dark urine with an odor over the last few days. She also reports ongoing constipation from her Parkinson's but has been MiraLAX and had 3 normal bowel movements this morning. [facility] <DAVIAN Johnson - Last Filed: 12/17/24 17:23> [facility] Medical History SOB (shortness of breath) Valvular heart disease Type 2 diabetes mellitus CANDIDA (obstructive sleep apnea) Osteopenia Mixed incontinence Kidney disease Dysphagia Hydronephrosis Anxiety Festinating gait Endometriosis Diverticulosis Decreased strength, endurance, and mobility Decreased functional activity tolerance Coordination impairment Cervical pain Carotid stenosis Bradykinesia Bilateral lower extremity edema Chronic constipation Abnormal CT scan Restless leg Depressed Parkinson disease Home Medications Medication Instructions Recorded Last Taken Type atorvastatin 10 mg tablet 10 mg PO QHS 03/19/15 12/15/19 History sertraline 100 mg tablet 100 mg PO DAILY 04/08/17 03/05/24 History clopidogrel 75 mg tablet 75 mg PO DAILY 09/17/22 03/05/24 History rasagiline 1 mg tablet (Azilect) 1 mg PO DAILY 09/17/22 03/05/24 History aspirin 81 mg tablet,delayed 81 mg PO DAILY 12/17/23 03/05/24 History release (Adult Low Dose Aspirin) carbidopa ER 36.25 mg-levodopa 145 1 cap PO .QID 12/17/23 03/05/24 History mg capsule,extended release (Rytary) furosemide 20 mg tablet (Lasix) 20 mg PO DAILY 12/17/23 Unknown History amantadine HCl 100 mg capsule 100 mg PO DAILY 02/07/24 03/05/24 History famotidine 40 mg tablet 40 mg PO DAILY 02/07/24 03/05/24 History Allergy/AdvReac Type Severity Reaction Status Date / Time aripiprazole (From Abilify) Allergy Mild Other Verified 12/17/24 13:53 prednisone Allergy Mild OTHER Verified 12/17/24 13:45 prochlorperazine (From Allergy Mild Other Verified 12/17/24 13:53 Compazine) erythromycin base Allergy UNK Verified 12/17/24 13:44 esomeprazole magnesium (From Allergy Unknown Verified 12/17/24 13:44 Nexium) cefadroxil (From Duricef) AdvReac Intermediate Hives Verified 12/17/24 13:44 desonide AdvReac Mild Other Verified 12/17/24 13:53 haloperidol (From Haldol) AdvReac Mild Other Verified 12/17/24 13:53 olanzapine (From Zyprexa) AdvReac Mild Other Verified 12/17/24 13:53 promethazine (From Phenergan) AdvReac Mild Other Verified 12/17/24 13:53 azithromycin AdvReac Nausea/Vom/ Verified 12/17/24 13:44 Diarrhea Family History Father Hypertension Alzheimer disease Mother Alzheimer disease Hypertension Macular degeneration Sister Diabetes Hypertension Depression Asthma Surgical History H/O ureteroscopy History of bilateral oophorectomy Social History Smoking Status: Never smoker alcohol intake: current ROS <DAVIAN Johnson - Last Filed: 12/17/24 17:23> ROS ED ROS Narrative Constitutional: Negative for fever, chills, malaise. CVS: Negative for chest pain. Respiratory: Negative for shortness of breath. GI: Positive for constipation. No nausea or vomiting. EXAM <DAVIAN Johnson - Last Filed: 12/17/24 17:23> Physical Exam Narrative Exam Narrative: CONST: Patient sitting in no acute distress. EYES: Normal inspection. NECK: Normal inspection. RESP: No respiratory distress, CTAB. CVS: Regular rate and rhythm, no murmur, no gallop. ABD: Soft and nontender, no guarding or rebound, nondistended. Normal bowel sounds x 4. SKIN: Color normal, no rash, warm, dry, intact. EXTREMITIES: Tube compression on both lower extremities. NEURO: Alert and answering questions appropriately. PSYCH: Normal affect. Const Vital Signs: 12/17/24 13:46 12/17/24 15:31 12/17/24 15:31 Temperature 98.3 F Temperature Source Oral Pulse Rate 71 67 Respiratory Rate 20 H 16 Respiratory Effort Normal Non-Labored Respiratory Pattern Normal Blood Pressure 157/79 H 152/71 H Blood Pressure Mean 105 98 Pulse Ox 96 95 Oxygen Delivery Method Room Air Room Air 12/17/24 17:00 12/17/24 17:18 Temperature 97.6 F L Temperature Source Pulse Rate 76 79 Respiratory Rate 12 18 Respiratory Effort Respiratory Pattern Blood Pressure 149/80 H 146/74 H Blood Pressure Mean 103 98 Pulse Ox 98 95 Oxygen Delivery Method Room Air <Dr. Catherine Eduardo DO - Last Filed: 12/19/24 06:56> Physical Exam Const Vital Signs: 12/17/24 13:46 12/17/24 15:31 12/17/24 15:31 Temperature 98.3 F Temperature Source Oral Pulse Rate 71 67 Respiratory Rate 20 H 16 Respiratory Effort Normal Non-Labored Respiratory Pattern Normal Blood Pressure 157/79 H 152/71 H Blood Pressure Mean 105 98 Pulse Ox 96 95 Oxygen Delivery Method Room Air Room Air 12/17/24 17:00 12/17/24 17:18 Temperature 97.6 F L Temperature Source Pulse Rate 76 79 Respiratory Rate 12 18 Respiratory Effort Respiratory Pattern Blood Pressure 149/80 H 146/74 H Blood Pressure Mean 103 98 Pulse Ox 98 95 Oxygen Delivery Method Room Air MDM <DAVIAN Johnson - Last Filed: 12/17/24 17:23> [facility] MDM Narrative Medical decision making narrative: History gathered from: Patient and spouse Differential includes but not limited to hypertension, urgency, emergency 74-year-old female scented for asymptomatic hypertension after a home health nurse noted systolic was over 200. She is not currently on blood pressure medication since it was low several times in the past. She is awake and alert in no distress. BP is 157/79 with normal vital signs. Exam is unremarkable and she has no neurological deficits. I do not think she requires emergent workup of her blood pressure she does not chest pain, shortness of breath, headache or neurological symptoms. Her just bought a BP cuff and I discussed how to check it once daily and take this log to her primary care appointment next week. She did mention her urine looked dark so UA was obtained and was negative for infection. I recommended increased hydration. She was discharged in stable condition. History & Record Review Discussion w/independent historian: Patient, Family and Significant other Additional record(s) reviewed:: Prior ED visit and Prior labs Lab Data Attestation: I reviewed the patient's lab results. Labs: Laboratory Results - last 24 hr 12/17/24 15:20 Urine Color Straw Urine Clarity Clear Urine pH 7.0 Ur Specific [place] 1.010 Urine Protein Negative Urine Glucose (UA) Normal Urine Ketones Negative Urine Occult Blood Negative Urine Nitrite Negative Urine Bilirubin Negative Urine Urobilinogen Normal Ur Leukocyte Esterase Negative Urine RBC 0-5 SEEN Urine WBC 0-5 SEEN Ur Squamous Epith Cells 0-5 SEEN Urine Bacteria RARE Urine Mucus 0 SEEN <Dr. Catherine Eduardo, DO - Last Filed: 12/19/24 06:56> MDM MDM Narrative Medical decision making narrative: History gathered from: Patient and spouse Differential includes but not limited to hypertension, urgency, emergency 74-year-old female scented for asymptomatic hypertension after a home health nurse noted systolic was over 200. She is not currently on blood pressure medication since it was low several times in the past. She is awake and alert in no distress. BP is 157/79 with normal vital signs. Exam is unremarkable and she has no neurological deficits. I do not think she requires emergent workup of her blood pressure she does not chest pain, shortness of breath, headache or neurological symptoms. Her just bought a BP cuff and I discussed how to check it once daily and take this log to her primary care appointment next week. She did mention her urine looked dark so UA was obtained and was negative for infection. I recommended increased hydration. She was discharged in stable condition. I have personally performed a face to face assessment of the patient and have reviewed the DUGLAS Note. I performed a substantive portion of the visit including all aspects of the following. My rodarte findings include: History is patient is a 74-year-old female with history of lymphedema, hypertension, Parkinson's disease, neuropathy and reported labile pressures who has had to reduce her hypertensive medication because of this. She is presenting today after she had elevated blood pressure at home health check. She is asymptomatic otherwise. She notes she has been following with wound care and did have an elevated blood pressure the other day however when she retook it it had normalized. She denies any chest pain, shortness of breath or difficulty breathing. States her leg swelling is actually improving. Has chronic constipation and mobility issues though she with a Parkinson's but denies any acute change of this and notes she had a bowel movement today. Upon arrival to the emergency room her blood pressure is only minimally elevated 157/79. Discussed at length with patient and that this is not something hypertensive emergency and I suspect initial blood pressure was likely more ranges. In addition with her Parkinson's she has labile blood pressures and we discussed how low blood pressures are much more dangerous in the short-term. I would not recommend making any blood pressure medication adjustments at this time. Discussed monitoring her blood pressure at home keeping a log to see if medication adjustment is required by her primary care doctor. Patient noted some abnormalities to her urine and has had a recent UTI. Will check urine out analysis does not show any proteinuria and is not excess with infection. Patient given reassurance. Encouraged follow-up with primary care. Given return precautions to the emergency room and counseled signs of hypertensive emergency including neurologic symptoms acutely such as a stroke, difficulty breathing, chest pain or decreased urine production Other additions or changes: [None] Lab Data Labs: Laboratory Results - last 24 hr 12/17/24 15:20 Urine Color Straw Urine Clarity Clear Urine pH 7.0 Ur Specific [place] 1.010 Urine Protein Negative Urine Glucose (UA) Normal Urine Ketones Negative Urine Occult Blood Negative Urine Nitrite Negative Urine Bilirubin Negative Urine Urobilinogen Normal Ur Leukocyte Esterase Negative Urine RBC 0-5 SEEN Urine WBC 0-5 SEEN Ur Squamous Epith Cells 0-5 SEEN Urine Bacteria RARE Urine Mucus 0 SEEN Discharge Plan Triage Chief Complaint: General Illness ED Midlevel Provider: Samanta Mills ED Provider: Catherine Eduardo Dx/Rx/DC Orders Clinical Impression: Hypertension Instructions: Blood Pressure Check Steps Prescriptions: No Action rasagiline [Azilect] 1 mg tablet 1 mg PO DAILY clopidogrel 75 mg tablet 75 mg PO DAILY furosemide [Lasix] 20 mg tablet 20 mg PO DAILY Rytary 36.25-145 mg capsule, extended release 1 cap PO .QID Rx Instructions: divide evenly over waking hours aspirin [Adult Low Dose Aspirin] 81 mg tablet,delayed release (DR/EC) 81 mg PO DAILY atorvastatin 10 MG tablet 10 mg PO QHS Patient Comments: cholesterol sertraline 100 MG tablet 100 mg PO DAILY famotidine 40 mg tablet 40 mg PO DAILY amantadine HCl 100 mg capsule 100 mg PO DAILY Primary Care Provider: Jason Dominguez Referrals: Jason Dominguez MD [Primary Care Provider] - Activity Restrictions/Additional Instructions: There is no urinary tract infection. Your blood pressure here is better at 152/71. I recommend you check your blood pressure once a day and keep a log and follow-up with your primary care doctor. Print Language: Tajik Disposition Disposition: Home, Self Care Discharge Date/Time: 12/17/24 17:19
[2024-12-17 15:30] VITALS: BMI 33.3
[2024-12-17 15:31] VITALS: BP 152/71; PULSE 67; RESP 16; O2SAT 95
[2024-12-17 15:32] LABS: Mucous, Urine 0 SEEN /hpf (<or=2+)
[2024-12-17 15:56] LABS: Color, Urine Straw (Yellow); Glucose, Dipstick Normal (Normal); Ketone-Dipstick Negative (Negative); Leukocyte Esterase-Dipstick Negative /ul (Negative); Nitrite-Dipstick Negative (Negative); Occult Blood-Urine Negative /ul (Negative); Protein-Dipstick Negative (Negative); Specific Gravity, Urine 1.010 (1.002-1.030); Urine Bilirubin Dipstick Negative (Negative)
[2024-12-17 17:00] VITALS: BP 149/80; PULSE 76; RESP 12; O2SAT 98
[2024-12-17 17:02] LABS: Squamous Epithelial Cells - UA 0-5 SEEN /hpf (5-10)
[2024-12-17 17:03] LABS: Red Blood Cells-Urine 0-5 SEEN /hpf (0-5)
[2024-12-17 17:18] VITALS: BP 146/74; PULSE 79; RESP 18; TEMP 36.4; O2SAT 95
== END 2024-12-17 17:19 | disposition home or self-care (01) ==
PROVIDERS: Emergency Provider Emergency Medicine; PCP Family Medicine; Referring Provider Emergency Medicine; Visit Provider Emergency Medicine
DX: I10 Essential (primary) hypertension (principal); G20.A1 Parkinson's disease without dyskinesia, without mention of fluctuations; E11.40 Type 2 diabetes mellitus with diabetic neuropathy, unspecified; I89.0 Lymphedema, not elsewhere classified; G47.33 Obstructive sleep apnea (adult) (pediatric)
CPT/HCPCS: 81001; 99282

== ENCOUNTER 2024-12-23 09:00 | Outpatient (RCR) | payer MEDICARE, SELFPAY ==
[2015-11-23 13:00] VITALS: BMI 31.4
[2024-12-16 08:10] VITALS: BP 169/80; PULSE 68; RESP 15; TEMP 36.3
--- NOTE | 2024-12-16 12:20 | PCM.WC.HP ---
History of Present Illness Date of Service: 12/16/24 Chief Complaint: Right lower leg cellulitis History of Wound: 74-year-old white female who has Parkinson's and is here for with her home health aide. She has bumps all over her lower extremity and a well-demarcated area of severe hemosiderin staining. Recently she was just on Duricef for her what they thought was cellulitis. Now she is got hives on her lower extremities especially over in the areas where her compression stockings were. She has the wraps and I think they held the heat and that makes it worse. I suggested she start taking Claritin twice a day to help with that and to put Duricef on her allergy. Basically at this point she has no cellulitis but she does have a well demarcated area that shows some rawness of her skin. We will put Xeroform dressing over that with some Adaptic and wrap and then follow-up in a week we will also schedule her for a vascular study she is already had stents put in both of stenosed iliac veins for occlusion. [facility] Medical History SOB (shortness of breath) Valvular heart disease Type 2 diabetes mellitus CANDIDA (obstructive sleep apnea) Osteopenia Mixed incontinence Kidney disease Dysphagia Hydronephrosis Anxiety Festinating gait Endometriosis Diverticulosis Decreased strength, endurance, and mobility Decreased functional activity tolerance Coordination impairment Cervical pain Carotid stenosis Bradykinesia Bilateral lower extremity edema Chronic constipation Abnormal CT scan Restless leg Depressed Parkinson disease Home Medications ?Medication ?Instructions ?Recorded ?Last Taken ?Type atorvastatin 10 mg tablet 10 mg PO QHS 03/19/15 12/15/19 History sertraline 100 mg tablet 100 mg PO DAILY 04/08/17 03/05/24 History clopidogrel 75 mg tablet 75 mg PO DAILY 09/17/22 03/05/24 History rasagiline 1 mg tablet (Azilect) 1 mg PO DAILY 09/17/22 03/05/24 History aspirin 81 mg tablet,delayed 81 mg PO DAILY 12/17/23 03/05/24 History release (Adult Low Dose Aspirin) carbidopa ER 36.25 mg-levodopa 145 1 cap PO .QID 12/17/23 03/05/24 History mg capsule,extended release (Rytary) furosemide 20 mg tablet (Lasix) 20 mg PO DAILY 12/17/23 Unknown History amantadine HCl 100 mg capsule 100 mg PO DAILY 02/07/24 03/05/24 History famotidine 40 mg tablet 40 mg PO DAILY 02/07/24 03/05/24 History Allergy/AdvReac Type Severity Reaction Status Date / Time erythromycin base Allergy UNK Verified 03/25/24 09:13 esomeprazole magnesium (From Allergy Unknown Verified 03/25/24 09:13 Nexium) cefadroxil (From Duricef) AdvReac Intermediate Hives Verified 12/16/24 09:25 azithromycin AdvReac Nausea/Vom/ Verified 03/25/24 09:13 Diarrhea Family History Father Hypertension Alzheimer disease Mother Alzheimer disease Hypertension Macular degeneration Sister Diabetes Hypertension Depression Asthma Surgical History H/O ureteroscopy History of bilateral oophorectomy Social History Smoking Status: Never smoker alcohol intake: current ROS Constitutional Constitutional: Reports systems reviewed and no addt'l complaints, except as documented Eyes Eyes: Reports systems reviewed and no addt'l complaints, except as documented ENT HEENT: Reports systems reviewed and no addt'l complaints, except as documented Cardiovascular Cardiovascular: Reports systems reviewed and no addt'l complaints, except as documented Respiratory/Chest Respiratory/Chest: Reports systems reviewed and no addt'l complaints, except as documented Gastrointestinal Gastrointestinal: Reports systems reviewed and no addt'l complaints, except as documented Genitourinary Genitourinary: Reports systems reviewed and no addt'l complaints, except as documented Musculoskeletal Musculoskeletal: Reports systems reviewed and no addt'l complaints, except as documented Integumentary Integumentary: Reports rash, skin pain and sores Neurologic Neurologic: Reports systems reviewed and no addt'l complaints, except as documented Psychiatric Psychiatric: Reports systems reviewed and no addt'l complaints, except as documented Endocrine Endocrinology: Reports systems reviewed and no addt'l complaints, except as documented Hematologic/Lymphatic Hematologic/Lymphatic: Reports systems reviewed and no addt'l complaints, except as documented Allergic/Immunologic Allergic/Immunologic: Reports systems reviewed and no addt'l complaints, except as documented Vital Signs Vital Signs Vital Signs: 12/16/24 08:10 Temperature 97.4 F L Temperature Source Temporal Pulse Rate 68 Respiratory Rate 15 Blood Pressure 169/80 H Blood Pressure Mean 109 Blood Pressure Source Monitor Blood Pressure Position Sitting Blood Pressure Location Right Arm Physical Exam Const oriented x3 General Appearance: cooperative Exam Limitations: no limitations HEENT normocephalic Eyes General Eye: normal appearance of both eyes Neck full ROM General: normal visual inspection Resp normal respiratory effort Effort and Inspection: able to speak in complete sentences Auscultation: clear to auscultation bilaterally Cardio regular rate and regular rhythm Palpation: normal PMI Rate: regular rate Rhythm: regular rhythm GI Palpation: soft and no hepatosplenomegaly Back/Spine Cervical Spine: cervical ROM normal Thoracic Spine / Upper Back: normal to inspection Lumbar Spine / Lower Back: normal to inspection Extremity General Extremity: normal exam except as noted and other findings Other Details: Hemosiderin stasis of bilateral lower legs well-demarcated some edema Skin no rashes or lesions noted Neuro oriented x3 Psych Appearance: grossly normal Speech: normal speech Thought Content: normal thought content Judgement: judgement good Debridement Note Debridement Note Post-Debridement Measurements and Additional Note: Post-Debridement Measurements/Treatment - Nurse 1 - General Ulcer Assessment Start: 12/16/24 08:09 Freq: Status: Active Protocol: SAMANTA Activity Type Activity Date Activity User E-sign Co-sign Detail Recorded Client Recorded Date Recorded By Document 12/16/24 08:10 ML [id number] 12/16/24 08:26 ML 12/16/24 08:10 - Today's Visit Information Type of service Initial Visit Arrival Mode Ambulatory, Walker Transfer Assistance None Patient Identification Verified (Name & Yes ) Patient Requires Transmission-Based No Precautions Vital Signs Temperature (97.8 F-99.1 F) 97.4 F L Temperature Source Temporal Pulse Rate (60-100 beats/min) 68 Pulse Location Monitor Respiratory Rate (12-18 breaths/min) 15 Respiratory rate source Observation Blood Pressure (90/60-120/80 mm Hg) 169/80 H Blood Pressure Mean (mm Hg) 109 Source Monitor Position Sitting Blood Pressure Location Right Arm Pain Scale: 0-10 Numeric Is Patient Pain Free? Yes - Nurse 2 - General Ulcer CM Notes Start: 12/16/24 08:09 Freq: Status: Active Protocol: Activity Type Activity Date Activity User E-sign Co-sign Detail Recorded Client Recorded Date Recorded By Document 12/16/24 08:36 [facility] [id number] 12/16/24 08:53 [facility] 12/16/24 08:36 Wound Center Nurse 2 #1- R Ramires rash -Time 08:50 -Procedure Performed No -Post Debridement (cm) - Length 0.1 -Post Debridement (cm) - Width 0.1 -Post Debridement (cm) - Depth 0.1 -Total Square (Post) (cm) 0.01 -Area of Debridement (cm) - Length 0.1 -Area of Debridement (cm) - Width 0.1 -Total Square (Area) (cm) 0.01 -Wound/Ulcer Outcome Not Healed -Bleeding Controlled with NA Pain Scale: 0-10 Numeric Is Patient Pain Free? Yes - Nurse 3 - General Ulcer D/C NN Start: 12/16/24 08:09 Freq: Status: Active Protocol: Activity Type Activity Date Activity User E-sign Co-sign Detail Recorded Client Recorded Date Recorded By Document 12/16/24 09:01 [id number] 12/16/24 09:05 12/16/24 09:01 Wound Care Center Nurse 3 #1- R Ramires rash -Ulcer Cleansing Rinsed/ Irrigated with Saline -Foul Odor after Cleansing No -Primary Dressing Applied NonAdherent Contact Layer -Other Dressing xeroform -Primary Dressing Covered/Secured with Dry Gauze & Roll Gauze, Secured with Tape BLE -Tubular Bandage Single Layer -Size of Tubigrip Used Size E -Size E ($) 1 -Other Pts Circaids Treatment Response Procedure Tolerated Well Pain Scale: 0-10 Numeric Is Patient Pain Free? Yes - Visit Discharge Discharge Condition Stable Ambulatory Status Ambulatory Transportation Private Auto Notes: Dressing applied per Geneva L. today. Assessment/Plan Assessment/Plan (1) Lymphedema: CODE(S): I89.0 - Lymphedema, not elsewhere classified PLAN: Continue using wraps and can go back to using her pumps (2) Stenosis of iliac vein: CODE(S): I87.1 - Compression of vein (3) Venous stasis dermatitis of both lower extremities: CODE(S): I87.2 - Venous insufficiency (chronic) (peripheral) (4) Cellulitis of lower extremity: CODE(S): L03.119 - Cellulitis of unspecified part of limb QUALIFIERS: Laterality: right Qualified Code(s): L03.115 - Cellulitis of right lower limb PLAN: Wash legs with antibacterial soap and water and apply Xeroform to the right lower leg with Adaptic and ABD and Ceasar right leg every day and then she can wear her compression stockings over top (5) Peripheral vascular disease of lower extremity with ulceration: CODE(S): I73.9 - Peripheral vascular disease, unspecified; L97.909 - Non-pressure chronic ulcer of unspecified part of unspecified lower leg with unspecified severity PLAN: Will order a vascular study of the veins and arteries to be done. (6) Allergic reaction to penicillin: CODE(S): T36.0X5A - Adverse effect of penicillins, initial encounter QUALIFIERS: Encounter type: initial encounter Qualified Code(s): T36.0X5A - Adverse effect of penicillins, initial encounter PLAN: Start taking Claritin or loratadine 10 mg twice daily for 10 days
--- NOTE | 2024-12-17 08:17 | WC ---
PHOTO-RLE 12/16/24
--- NOTE | 2024-12-21 08:48 | VDLE_ITS ---
Reason For Study Reason For Study: HX CIV Stents RIGHT LEFT CFV is compressible, spontaneous, competent and CFV is compressible, spontaneous, competent, and demonstrates pulsatile venous flow. demonstrates pulsatile venous flow. FV is compressible, spontaneous, competent and FV is compressible, spontaneous, competent and demonstrates pulsatile venous flow. demonstrates pulsatile venous flow. POP V is compressible, spontaneous, competent and POP V is compressible, spontaneous, competent and demonstrates pulsatile venous flow. demonstrates pulsatile venous flow. T/P Trunk is compressible. T/P Trunk is compressible. PTV is compressible. PTV is compressible. RT PerV is compressible. LT PerV is compressible. SFJ is competent and measures 0.48 cm. SFJ is competent and measures 0.45 cm. GSV proximal thigh measures 0.65 x 0.55 cm. GSV proximal thigh measures 0.54 x 0.50 cm. GSV at knee measures 0.41 x 0.40 cm. GSV at knee measures 0.41 cm. GSV is competent throughout. GSV is competent throughout. SSV mid calf is competent and measures 0.27 cm. SSV mid calf is competent and measures 0.18 cm. Procedure Exam performed in department. This is a venous duplex using B-mode, color flow and spectral Doppler. The exam was diagnostic. Patient was scanned in reverse Trendelenburg position during reflux assessment. VL/Venous Duplex US - Lobo Extrem Interpretation Summary Deep veins of the lower extremities are bilaterally patent and compressible seg mentally. There is no evidence of deep vein thrombosis on either side. Valvular competence appears intact within the p roximal deep venous systems bilaterally. The great saphenous veins appear bilaterally patent and compressible segmentall y. Sapheno-femoral junctions are bilaterally competent . Valvular competence appears to be intact segmentally wi thin the great saphenous veins bilaterally. Small saphenous veins are patent and competent bilaterally. Pulsat ile flow is noted in the deep venous system bilaterally, which may be indicative of elevated central venous pressure (i.e. congestive heart failure, pulmonary hypertension, etc.). Clinical correlation is advised. Ordering Physician: Naz Holt Referring Physician: Jason Dominguez Performed By: Don Jones RVT
--- NOTE | 2024-12-21 08:51 | ART_ITS ---
Reason For Study Reason For Study: RLE Wound Procedure A bilateral lower extremity continuous wave Doppler with analog waveform analysis,segmental pressures,and ankle brachial indexes without exercise. Left Segmental Pressures Left brachial= 192mmHg. Left posterior tibial artery = >254mmHg. Left dorsalis pedis artery = >254mmHg. Left digit = 216 mmHg. The left posterior tibial artery waveforms are triphasic. The left dorsalis pedis waveforms are triphasic. Right Segmental Pressures Right brachial= 181mmHg. Right posterior tibial artery = >254mmHg. Right dorsalis pedis artery = 226mmHg. Right digit = 195 mmHg. The right posterior tibial artery waveforms are triphasic. The right dorsalis pedis waveforms are triphasic. Indices The right ankle brachial index by the posterior tibial artery is N/C. The right ankle brachial index by the dorsalis pedis is 1.18. The right digital-brachial index is 1.02. The left ankle brachial index by the posterior tibial artery is N/C. The left ankle brachial index by the dorsalis pedis is N/C. The left digital-brachial index is 1.13. VL/Lower Ext Art Exam w/o Exercis Interpretation Summary Triphasic Doppler waveforms are noted at ankle level bilaterally. Pulse-volume recordings appear satisfactory at all levels bilaterally. The resting right ankle-brachial index is normal. The resti ng left ankle-brachial index could not be determined due to the non-compressibility of the vasculature at ankle level. Di gital-brachial indices are normal bilaterally. There is evidence of arterial calcification at ankle level on the left. There i s no evidence of significant arterial occlusive disease in the lower extremities bilaterally. Systolic blood pressure is elevated. Ordering Physician: Naz Holt Referring Physician: Jason Dominguez Performed By: Don Jones RVCortez
[2024-12-23 08:54] VITALS: BP 154/72; PULSE 80; RESP 18; TEMP 36.6
--- NOTE | 2024-12-23 10:02 | PCM.WC.PN ---
History of Present Illness Date of Service: 12/23/24 Chief Complaint: Right lower leg cellulitis History of Wound: 74-year-old white female who has Parkinson's and is here for with her home health aide. She has bumps all over her lower extremity and a well-demarcated area of severe hemosiderin staining. Recently she was just on Duricef for her what they thought was cellulitis. Now she is got hives on her lower extremities especially over in the areas where her compression stockings were. She has the wraps and I think they held the heat and that makes it worse. I suggested she start taking Claritin twice a day to help with that and to put Duricef on her allergy. Basically at this point she has no cellulitis but she does have a well demarcated area that shows some rawness of her skin. We will put Xeroform dressing over that with some Adaptic and wrap and then follow-up in a week we will also schedule her for a vascular study she is already had stents put in both of stenosed iliac veins for occlusion. Progress of Wound: So the leg is healed where the Xeroform was she still gets a lot of petechial but she is on blood thinners so it is always going to be discolored we did do leg studies on her and she does have a calcification in the left ankle but otherwise her veins are good they are functioning correctly. But because she is on Plavix it causes that bleeding that is causing her discoloration in her foot and her lower extremities from the compression that she is using. I told her at this point you have to outweigh the risks in the management so she needs the compression for her legs for the lymphedema and and for circulation so it outweighs the discoloration of her legs and she will just have to put up with that. As for the calcification we will give her a copy of the study that we did and she has a vascular surgeon in [place] that she will follow-up with. Subjective Subjective Patient was pleased with outcomes Objective Data Objective Data Again patient is healed and be discharged from the wound center we told her if that opens again or starts looking like it is opening to start using her Xeroform again with a dressing over it and it should be all fine. Vital Signs: Vital Signs Temp Pulse Resp BP O2 Del Method 98 F 80 18 154/72 H Room Air 12/23/24 08:54 12/23/24 08:54 12/23/24 08:54 12/23/24 08:54 12/23/24 08:54 Oxygen Delivery Method Room Air Lab / Micro Data Attestation: I reviewed the patient's lab results. Physical Exam Const oriented x3 General Appearance: cooperative Exam Limitations: no limitations HEENT normocephalic Eyes General Eye: normal appearance of both eyes Neck full ROM General: normal visual inspection Resp normal respiratory effort Effort and Inspection: able to speak in complete sentences Auscultation: clear to auscultation bilaterally Cardio regular rate and regular rhythm Palpation: normal PMI Rate: regular rate Rhythm: regular rhythm GI Palpation: soft and no hepatosplenomegaly Back/Spine Cervical Spine: cervical ROM normal Thoracic Spine / Upper Back: normal to inspection Lumbar Spine / Lower Back: normal to inspection Extremity General Extremity: normal exam except as noted and other findings Other Details: Hemosiderin stasis of bilateral lower legs well-demarcated some edema Skin no rashes or lesions noted Neuro oriented x3 Psych Appearance: grossly normal Speech: normal speech Thought Content: normal thought content Judgement: judgement good Debridement Note Debridement Note No debridement was completed: No debridement was completed today Post-Debridement Measurements and Additional Note: Post-Debridement Measurements/Treatment - Nurse 1 - General Ulcer Assessment Start: 12/16/24 08:09 Freq: Status: Active Protocol: [email or web address].[email or web address] Activity Type Activity Date Activity User E-sign Co-sign Detail Recorded Client Recorded Date Recorded By Document 12/16/24 08:10 ML [id number] 12/16/24 08:26 ML Document 12/23/24 08:54 LA [id number] 12/23/24 09:02 LA 12/16/24 12/23/24 08:10 08:54 [facility] Today's Visit Information Type of service Initial Visit Follow-up Visit (Physician/CHIEF HUMAN RESOURCES OFFICER ) Arrival Mode Ambulatory, Ambulatory, Walker Walker Transfer Assistance None None Patient Identification Verified (Name & Yes Yes ) Patient Requires Transmission-Based No Precautions Safety Precautions Fall Prevention Vital Signs Temperature (97.8 F-99.1 F) 97.4 F L 98 F Temperature Source Temporal Temporal Pulse Rate (60-100) 68 80 Pulse Location Monitor Monitor Respiratory Rate (12-18) 15 18 Respiratory rate source Observation Observation Oxygen Delivery Method Room Air Blood Pressure (90/60-120/80) 169/80 H 154/72 H Blood Pressure Mean (mm Hg) 109 99 Source Monitor Monitor Position Sitting Sitting Blood Pressure Location Right Arm Left Arm History Since Last Visit- (Skip if this is Patient's initial visit) Has dressing in place as prescribed Yes Has compression in place as prescribed Yes Has offloadiing in place as prescribed Yes Experienced any changes in pain level or Yes management Left Footwear Regular Shoe Right Footwear Regular Shoe Pain Scale: 0-10 Numeric Is Patient Pain Free? Yes Yes - Nurse 1 - General Ulcer Measurement Start: 12/16/24 08:09 Freq: Status: Active Protocol: Activity Type Activity Date Activity User E-sign Co-sign Detail Recorded Client Recorded Date Recorded By Document 12/23/24 08:54 LA [id number] 12/23/24 09:02 LA 12/23/24 08:54 Wound Center Nurse 1 #1- R Ramires rash -Combined with other wound No -Photo Taken No -Tunneling No -Undermining/Tunneling No -Circular Undermining No -Exudate Amt None Present -Wound Margin Flat & Intact -Granulation Amt Large (67-100%) -Granulation Quality Pale,[place] -Necrosis Amt Large (67-100%) -Necrotic Tissue Type Adherent Slough -Texture ([place]-wound Skin Appearance) Assessed -Moisture ([place]-wound Skin Appearance) Assessed -Color ([place]-wound Skin Appearance) Assessed -Temperature ([place]-wound Skin No Abnormality Appearance) (Pt Warm) -Tenderness on Palpation ([place]-wound No Skin Appearance) -Ulcer Cleansing Soap and Water -Foul Odor after Cleansing No Right Calf (cm) 24.6 Right Ankle (cm) 21.5 - Nurse 2 - General Ulcer CM Notes Start: 12/16/24 08:09 Freq: Status: Active Protocol: Activity Type Activity Date Activity User E-sign Co-sign Detail Recorded Client Recorded Date Recorded By Document 12/16/24 08:36 [facility] [id number] 12/16/24 08:53 [facility] Document 12/23/24 09:03 [facility] [id number] 12/23/24 09:10 [facility] 12/16/24 12/23/24 08:36 09:03 Wound Center Nurse 2 #1- R Ramires rash -Time 08:50 09:03 -Procedure Performed No -Post Debridement (cm) - Length 0.1 0 -Post Debridement (cm) - Width 0.1 0 -Post Debridement (cm) - Depth 0.1 0 -Total Square (Post) (cm) 0.01 0 -Area of Debridement (cm) - Length 0.1 0 -Area of Debridement (cm) - Width 0.1 0 -Total Square (Area) (cm) 0.01 0 -Wound/Ulcer Outcome Not Healed Healed- Epithelialized -Bleeding Controlled with NA NA Pain Scale: 0-10 Numeric Is Patient Pain Free? Yes Yes - Nurse 3 - General Ulcer D/C NN Start: 12/16/24 08:09 Freq: Status: Active Protocol: Activity Type Activity Date Activity User E-sign Co-sign Detail Recorded Client Recorded Date Recorded By Document 12/16/24 09:01 DL [id number] 12/16/24 09:05 DL Document 12/23/24 09:10 [facility] [id number] 12/23/24 09:15 [facility] 12/16/24 12/23/24 09:01 09:10 Wound Care Center Nurse 3 #1- R Ramires rash -Ulcer Cleansing Rinsed/ Irrigated with Saline -Foul Odor after Cleansing No -Primary Dressing Applied NonAdherent Contact Layer -Other Dressing xeroform -Primary Dressing Covered/Secured with Dry Gauze & Roll Gauze, Secured with Tape -Wound Comment(s) HEALED. ALEXIS BLE -Tubular Bandage Single Layer -Size of Tubigrip Used Size E -Size E ($) 1 -Other Pts Circaids WEARS OWN CIRCAIDS AND HAS SINGLE LAYER TUBIS FOR UNDERNEATH Treatment Response Procedure Procedure Tolerated Well Tolerated Well Pain Scale: 0-10 Numeric Is Patient Pain Free? Yes Yes - Visit Discharge Discharge Condition Stable Stable Ambulatory Status Ambulatory Ambulatory, Walker Transportation Private Auto Private Auto Accompanied by CAREGIVER Notes: Dressing applied per [place] tyson. Facility Type Home Health Assessment/Plan Assessment/Plan (1) Lymphedema: CODE(S): I89.0 - Lymphedema, not elsewhere classified PLAN: Continue using wraps and can go back to using her pumps (2) Stenosis of iliac vein: CODE(S): I87.1 - Compression of vein (3) Venous stasis dermatitis of both lower extremities: CODE(S): I87.2 - Venous insufficiency (chronic) (peripheral) PLAN: Discharge from the wound center and follow-up as needed. (4) Cellulitis of lower extremity: CODE(S): L03.119 - Cellulitis of unspecified part of limb QUALIFIERS: Laterality: right Qualified Code(s): L03.115 - Cellulitis of right lower limb (5) Peripheral vascular disease of lower extremity with ulceration: CODE(S): I73.9 - Peripheral vascular disease, unspecified; L97.909 - Non-pressure chronic ulcer of unspecified part of unspecified lower leg with unspecified severity PLAN: Went over the vascular studies and discussed with her options and she is going to take a copy of her test and take it to her own vascular doctor in [place]. (6) Allergic reaction to penicillin: CODE(S): T36.0X5A - Adverse effect of penicillins, initial encounter QUALIFIERS: Encounter type: initial encounter Qualified Code(s): T36.0X5A - Adverse effect of penicillins, initial encounter PLAN: Start taking Claritin or loratadine 10 mg twice daily for 10 days
--- NOTE | 2024-12-24 09:26 | WC ---
PHOTO-RLE 12/23/24
--- NOTE | 2024-12-24 09:31 | WC ---
PHOTO-RLE 12/23/24
== END 2024-12-24 14:54 | disposition home or self-care (01) ==
LOC: WC 09:00
PROVIDERS: PCP Family Medicine; Referring Provider Family Medicine; Visit Provider Nurse Practitioner
DX: I89.0 Lymphedema, not elsewhere classified (principal); G20.A1 Parkinson's disease without dyskinesia, without mention of fluctuations; E11.51 Type 2 diabetes mellitus with diabetic peripheral angiopathy without gangrene; L03.115 Cellulitis of right lower limb; N39.46 Mixed incontinence; Z79.899 Other long term (current) drug therapy; Z79.02 Long term (current) use of antithrombotics/antiplatelets; Z79.82 Long term (current) use of aspirin; I87.2 Venous insufficiency (chronic) (peripheral); I87.1 Compression of vein; T36.0X5A Adverse effect of penicillins, initial encounter; L50.9 Urticaria, unspecified; R60.0 Localized edema
CPT/HCPCS: 93923; 93970; 99212; 99213; G0463

== ENCOUNTER → 2025-04-01 | Outpatient (CLI) | payer MEDICARE, SELFPAY ==
[2015-11-23 13:00] VITALS: BMI 31.4
--- NOTE | 2025-04-01 13:17 | SP.MBSS_ITS ---
Modified Barium Swallow
--- NOTE | 2025-04-01 13:17 | ST.MBS ---
Modified Barium Swallow Patient Information Study Date: 04/01/25 Study Time: 13:00 Direct Billable Minutes: 120 Total Minutes procedure & reportin Diagnosis: R13.12; G20; R49.0 Referring Physician: Torey Hardin Reason for Referral: Re-assess swallow function and aspiration risk to determine appropriate dysphagia interventions. Medical History: Current OP ST POC at rehabilitation for management of moderate dysphonia. MEDIA SERVICES COORDINATORCesar, recommended the patient for this MBSS due to throat clearing w/ drinks and hx of dysphagia w/ most recent MBSS in 2022 (no records, completed at another facility). MEDIA SERVICES COORDINATORCesar, obtained order from Dr. Hardin. She did have MBSS at [facility] in 2016, which revealed mild oropharyngeal dysphagia and recommended regular textures / thin liquids w/ aspiration precautions. GI office visit note 02/15/2025 stated patient had concerns for increased swallowing difficulty w/ foods and liquids, sensation of foods sticking in her throat, eating more slowly, chronic constipation. The note had recommended VFSS/MBSS, as well as a soft, easily chewed diet w/ thickened liquids. Patient reported at this MBSS that she has had increased swallowing difficulty for the past year, which is gradually worsening. She reports having PD for the past 10 years. Her swallowing difficulty is typically w/ liquids. She will have bad coughing episodes. She denies difficulty chewing or swallowing solids. She also reports severe xerostomia. She reports standing at meals to help w/ digestion. PMH: SOB (shortness of breath) Valvular heart disease Type 2 diabetes mellitus CANDIDA (obstructive sleep apnea) Osteopenia Mixed incontinence Kidney disease Dysphagia Hydronephrosis Anxiety Festinating gait Endometriosis Diverticulosis Decreased strength, endurance, and mobility Decreased functional activity tolerance Coordination impairment Cervical pain Carotid stenosis Bradykinesia Bilateral lower extremity edema Chronic constipation Abnormal CT scan Restless leg Depressed Parkinson disease Current Diet Ordered: Regular textures / Thin liquids Dentition: Natural Teeth and Missing Teeth Mental Status: WNL (Able to follow commands for MBSS w/o difficulty) Respiratory Status: Oxygenating on Room Air Penetration-Aspiration Scale Penetration-Aspiration Scale: OBJECTIVE ASSESSMENT OF SWALLOW FUNCTION (QUANTITATIVE ? PER TRIAL): PENETRATION / ASPIRATION SCALE (KEE): 1 = does not enter airway 2 = enters airway/above vocal folds/ejected 3 = enters airway/above vocal folds/not ejected 4 = enters airway/contacts vocal folds/ejected 5 = enters airway/contacts vocal folds/not ejected 6 = enters airway/below vocal folds/ejected 7 = enters airway/below vocal folds/not ejected despite effort 8 = enters airway/below vocal folds/no effort VIDEOFLOROSCOPIC SCALE SCORE (KEE): Grade I = aspiration of material that has penetrated into the laryngeal vestibule, intact cough reflex Grade II = aspiration < 10 % of the bolus, intact cough reflex Grade III = aspiration of < 10 % of the bolus, reduced cough reflex or aspiration of > 10 % of the bolus, intact cough reflex Grade IV = aspiration of > 10 % of the bolus, reduced cough reflex Penetration-Aspiration Scale Score Thin Liquid via teaspoon: Result: 1= does not enter airway Thin Liquid via teaspoon Trial 2: Result: 1= does not enter airway Thin Liquid via sequential sips: cup: Result: 2= enter airway/above vocal folds/ejected [place] Thick Liquid via small single sip: cup: Result: 1= does not enter airway Pudding via teaspoon: Result: 1= does not enter airway Comment: Esophageal screen - Complete clearance. Pt repositioned in chair during the esophageal screen due to chair partially obstructing view of the esophagus. 1/2 Cookie: Result: 1= does not enter airway Comment: Esophageal screen - Retention of majority of the bolus in the upper and middle of the esophagus. Mild retention in the lower esophagus. Thin Liquid via single sip: straw: Result: 1= does not enter airway Comment: Esophageal screen - Liquid wash cleared cookie retention through the LES. Thin Liquid via sequential sips:straw: Result: 2= enter airway/above vocal folds/ejected Barium Tablet w/ thin water liquid wash (sequential sips by cup): Comment: No PAS score as the barium tablet did not leave the oral cavity; however, MEDIA SERVICES COORDINATOR highly suspects aspiration of thin water due to coughing episode immediately following sequential sips. Bairum tablet w/ chocolate pudding: Comment: No PAS score as the barium tablet did not leave the oral cavity. Barium Tablet w/ thin barium liquid wash (sequential sips by straw): Result: 2= enter airway/above vocal folds/ejected Comment: Utilized barium for wash due to concerns for aspiration of thin water via sequential cup. Patient required 7 liquid washes via straw prior to clearing the pill from the oral cavity. Esophageal screen - Retention of barium tables in the lower esophagus. Moderate retention of thin barium in the lower and middle esophagus w/ retrograde flow. Oral Phase Labial Seal: Escape beyond interlabial space; no extension beyond ana border Tongue Control During Bolus Hold: Posterior escape of greater than half of bolus Bolus Preparation/Mastication: Slow prolonged chewing/mashing with complete recollection Bolus Transport/Lingual Motion: Repetitive/disorganized tongue motion Oral Residue: Majority of bolus remaining (thin by tsp, >50% in oral cavity after the first swallow, independent initiation of additional swallow mostly cleared the bolus) Pharyngeal Phase Initiation of Pharyngeal Swallow: Bolus head in pyriforms Soft Palate Elevation: Trace column of contrast/air between soft palate and pharyngeal wall Laryngeal Elevation: Partial superior movement thyroid cart/partial apprx aryt-epig petiole (Highly suspect aspiration of thin water) Anterior Hyoid Excursion: Partial anterior movement Epiglottic Movement: Complete inversion Laryngeal Vestibule Closure at Height of Swallow: Incomplete; narrow column of air/contrast in laryngeal vestibule Pharyngeal Stripping Wave: Present - complete Pharyngoesophageal Segment Opening: Parital distension and partial duration; parital obstruction of flow (Trace retention in the UES) Tongue Base Retraction: Narrow column of contrast between tongue base & post. pharyngeal wall Pharyngeal Residue: Trace residue within or on pharyngeal structures Esophageal Phase Esophageal Clearance: Esophageal retention w/ retrograde flow below pharyngoesophageal seg. Diagnosis/Impression Diagnosis: Mild oropharyngeal dysphagia R13.12; Esophageal dysphagia R13.14 MBS Impressions: The oral phase is primarily marked by... -Premature posterior loss of liquids to the pyriform sinuses most evident w/ thin by tsp and sequential sips of thin liquids. -Disorganized tongue motion for A-P transport. Pt had greatly difficulty w/ A-P transport of whole tablet. -Slowed, but complete mastication. The pharyngeal phase is primarily marked by... -Delayed swallow onset. -Decreased airway closure laryngeal elevation and anterior hyoid excursion w/ laryngeal penetration of thin liquids w/ complete ejection. MEDIA SERVICES COORDINATOR highly suspects aspiration of thin water when used as a liquid wash for barium tablet. The esophageal phase is primarily marked by... -Retention of cookie in the upper/middle esophagus, mild retention in the lower esophagus. Liquid wash effectively cleared cookie through the LES. -Retention of barium tablet in the LES w/ retention of liquid barium in the middle and lower esophagus w/ retrograde flow. Recommendations Diet: Regular Textures (Moisten Dry Textures) and Thin Liquids Comment: Pills crushed in puree as able. For pills that can't be crushed, whole, one at a time, w/ liquid wash via straw. Compensatory Strategies: Small Bites, Small Sips, Slow Rate (Sips 1 at a time), Alternate bites/solids and sips/liquids (Take a sip after every 1-2 bites) and Sitting upright (During and 30-60min after meals) Recommend Repeat Modified Barium Swallow: Yes (Routine MBSS would be beneficial to monitor the patient's dysphagia as PD progresses. Would consider the pt for repeat MBSS annually or sooner if concern for worsening diet tolerance.) Need for Skilled Speech Therapy Services: Yes Comment: Recommend OP dysphagia treatment... -Train the patient in use of strategies to decrease risk for aspiration and reflux aspiration. -Discuss management strategies for xerostomia. -Ongoing assessment of diet tolerance of recommended textures. Consider downgrade to Easy to Chew textures if duration of chewing results in fatigue at meals. -Train the patient in oropharyngeal exercise program to improve lingual control, swallow onset, and airway closure. Recommended Referrals: GI Consult Education Completed: 1. Described result of evaluation., 2. Pt understands evaluation & agrees with goals and treatment plan. and 7. Pt requires further education on strategies & risks. Comment: Results and recommendations thoroughly reviewed w/ the patient and her . MEDIA SERVICES COORDINATOR faxed the patient's MBSS to Dr. Hardin, Dr. rSeekanth Dominguez, and Dr. Doug Fields (neurology, [facility]) per patient request. Status Active ST Patient: Active Contact Information [facility] Speech Therapy:: Joann Avina M.A. [facility]-MEDIA SERVICES COORDINATOR Speech-Language Pathologist [facility] [address] [place] [address] [email or web address] [phone]
== END | disposition home or self-care (01) ==
PROVIDERS: PCP Family Medicine; Referring Provider Internal Medicine Gastroenterology; Visit Provider Internal Medicine Gastroenterology
DX: R13.10 Dysphagia, unspecified (principal); G20.C Parkinsonism, unspecified
CPT/HCPCS: 74230; 92611

== ENCOUNTER 2025-04-07 11:00 | Outpatient (RCR) | payer MEDICARE, SELFPAY ==
[2015-11-23 13:00] VITALS: BMI 31.4
--- NOTE | 2025-03-01 17:02 | HP.SP.EVAL ---
Visit History Visit Info Date of Eval: 02/26/25 Today is Visit #: 1 Plastics Plater: JOSEFA History Attending Doctor: Referring Doctor: Reason for Referral: PARKINSONS. Date of Onset of Diagnosis: Feb 2015 Previous speech therapy: Yes Results: Patient reported she has had multiple times of speech therapy since her diagnosis of Parkinson's Disease at this facility and others. With this therapist in 2015 she had good results for increased volume. She reported she has had therapy at [facility] and in [place] since then. 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 Pain Is pain an issue with your current prescribed condition?: No Personal Preferred language: Amharic Patient Allergies Allergies Allergies: Allergies aripiprazole (From Abilify) Allergy (Mild, Verified 12/17/24 13:53) Other HX OF PARKINSONS DISEASE prednisone Allergy (Mild, Verified 12/17/24 13:45) OTHER flairs up my Lymphedema prochlorperazine (From Compazine) Allergy (Mild, Verified 12/17/24 13:53) Other HX OF PARKINSONS DISEASE erythromycin base Allergy (Verified 12/17/24 13:44) UNK esomeprazole magnesium (From Nexium) Allergy (Verified 12/17/24 13:44) Unknown cefadroxil (From Duricef) Adverse Reaction (Intermediate, Verified 12/17/24 13:44) Hives desonide Adverse Reaction (Mild, Verified 12/17/24 13:53) Other WORSENING LYMPHEDEMA WITH TOPICAL CREAM haloperidol (From Haldol) Adverse Reaction (Mild, Verified 12/17/24 13:53) Other HX OF PARKINSONS olanzapine (From Zyprexa) Adverse Reaction (Mild, Verified 12/17/24 13:53) Other HX OF PARKINSONS promethazine (From Phenergan) Adverse Reaction (Mild, Verified 12/17/24 13:53) Other HX OF PARKINSONS azithromycin Adverse Reaction (Verified 12/17/24 13:44) Nausea/Vom/Diarrhea Objective Voice Date of Diagnosis Previous Speech Therapy (If yes, describe): Yes Medications Familiar with on/off effect: Yes Implantation Deep brain implantation (If yes, answer next question): No Objective data Objective Data: Objective data: Sound pressure level (SPL acoustic correlation of vocal loudness) was measured with a sound level meter at a distance of 40 cm from the patient's mouth. Average conversational loudness is 70-80 dB and sustained phonation duration is 15 to 20 seconds for a typical adult. Sustained Phonation Intensity (dB SPL): 70.3 dB Sustained Phonatin duration (seconds): 7.6 Is the individual stimulable to increase vocal intensity: Yes (increased to 77 dB with one cue) Vocal Intensity at Conversational Level (dB SPL): 53 dB Reference: Neuro-QoL instrument HDQLIFE - Speech Difficulties In the past 7 days. It was difficult for other people to understand me.: Always Is was difficult to speak clearly?: Always In the past 7 days.. How often did you limit your social activites because you had difficulty speaking?: Often In the past 7 days... I had trouble speaking.: Very much I was frustrated by my speech difficulties.: Very much How much DIFFICULTY do you have... ...saying what you want to say?: Some difficulty Score HDQLIFE Speech Difficulties Raw Score: 27 HDQLIFE Speech Difficulties T - Score: 66 Radiation Oncology Patient Plan Plan Plan: A vocal intensity based intervention approach applying LSVT principles to improve speech intelligibility will be used. Given the progressive nature of primary diagnosis, It is not anticipated for a full return to pre-morbid level of functioning, though will expect to achieve gains in speech intelligibility as well as maintain current level of functioning. To achieve this, the patient will require continued skilled speech-language intervention not only through the current intervention cycle but will likely benefit from repeated intervention cycles to maintain communication efficiency. Recommendations Treatment Warranted: Yes Treatment Warranted: Voice Progress Prognosis: Good Frequency Frequency: 2x /Week Duration: 6 Weeks Patient/Family Goal Patient/Family Goal: Patient's goal is to be able loud and be understood. Goals that are Established Determination:: Goals will be added/modified as deemed necessary and appropriate. Therapy will be discontinued when results of re-evaluation indicate therapy is no longer needed or lack of progress has been documented. Goal #1-5 Goal #1: Patient will increase vocal loudness to reach a target sound pressure level of 75 dB SUBSCRIPTION CREW LEADER with 1 cue during sustained phonation, which will help increase vocal respiratory support for functional communication. Goal #2: Patient will increase vocal loudness to reach a target sound pressure level of 65 dB SUBSCRIPTION CREW LEADER with 1 cue during reading at the word and sentence level, which will help increase vocal respiratory support for functional communication. Goal #3: Patient will increase vocal loudness to reach a target sound pressure level of 60 dB SUBSCRIPTION CREW LEADER with 1 cue during conversation for functional communication. Goal #4: Patient will sustain phonation for an average of 10 seconds on 4/5 trials on 2/3 consecutive sessions which will help increase vocal respiratory support for functional communication. Education Patient has Indicated that the Following Identified Educational Needs: Cognitively Impaired and Hearing/Vision/Speech Impaired Patient Instruction Patient Education: Diagnosis and Treatment Plan Person Taught: Patient and Significant Other Response to teaching: Verbalize Understanding and Has Prior Knowledge
--- NOTE | 2025-04-05 09:21 | ST ---
[facility] Speech Pathology [address] [place] [address] Modified Barium Swallow Study MR#: [id number] Acct: [id number] Name: JEROME CORREA Rep #: [id number] : 1950 74 From: Joann Avina M.A., [facility]-MEAT AND SEAFOOD MANAGER Modified Barium Swallow Patient Information Study Date: 04/01/25 Study Time: 13:00 Direct Billable Minutes: 120 Total Minutes procedure & reportin Diagnosis: R13.12; G20; R49.0 Referring Physician: Torey Hardin Reason for Referral: Re-assess swallow function and aspiration risk to determine appropriate dysphagia interventions. Medical History: Current OP ST POC at rehabilitation for management of moderate dysphonia. MEAT AND SEAFOOD MANAGERCesar, recommended the patient for this MBSS due to throat clearing w/ drinks and hx of dysphagia w/ most recent MBSS in 2022 (no records, completed at another facility). Cesar RESENDIZ, obtained order from Dr. Hardin. She did have MBSS at [facility] in 2015, which revealed mild oropharyngeal dysphagia and recommended regular textures / thin liquids w/ aspiration precautions. GI office visit note 02/15/2025 stated patient had concerns for increased swallowing difficulty w/ foods and liquids, sensation of foods sticking in her throat, eating more slowly, chronic constipation. The note had recommended VFSS/MBSS, as well as a soft, easily chewed diet w/ thickened liquids. Patient reported at this MBSS that she has had increased swallowing difficulty for the past year, which is gradually worsening. She reports having PD for the past 10 years. Her swallowing difficulty is typically w/ liquids. She will have bad coughing episodes. She denies difficulty chewing or swallowing solids. She also reports severe xerostomia. She reports standing at meals to help w/ digestion. PMH: SOB (shortness of breath) Valvular heart disease Type 2 diabetes mellitus CANDIDA (obstructive sleep apnea) Osteopenia Mixed incontinence Kidney disease Dysphagia Hydronephrosis Anxiety Festinating gait Endometriosis Diverticulosis Decreased strength, endurance, and mobility Decreased functional activity tolerance Coordination impairment Cervical pain Carotid stenosis Bradykinesia Bilateral lower extremity edema Chronic constipation Abnormal CT scan Restless leg Depressed Parkinson disease Current Diet Ordered: Regular textures / Thin liquids Dentition: Natural Teeth and Missing Teeth Mental Status: WNL (Able to follow commands for MBSS w/o difficulty) Respiratory Status: Oxygenating on Room Air Penetration-Aspiration Scale Penetration-Aspiration Scale: OBJECTIVE ASSESSMENT OF SWALLOW FUNCTION (QUANTITATIVE ? PER TRIAL): PENETRATION / ASPIRATION SCALE (KEE): 1 = does not enter airway 2 = enters airway/above vocal folds/ejected 3 = enters airway/above vocal folds/not ejected 4 = enters airway/contacts vocal folds/ejected 5 = enters airway/contacts vocal folds/not ejected 6 = enters airway/below vocal folds/ejected 7 = enters airway/below vocal folds/not ejected despite effort 8 = enters airway/below vocal folds/no effort VIDEOFLOROSCOPIC SCALE SCORE (KEE): Grade I = aspiration of material that has penetrated into the laryngeal vestibule, intact cough reflex Grade II = aspiration < 10 % of the bolus, intact cough reflex Grade III = aspiration of < 10 % of the bolus, reduced cough reflex or aspiration of > 10 % of the bolus, intact cough reflex Grade IV = aspiration of > 10 % of the bolus, reduced cough reflex Penetration-Aspiration Scale Score Thin Liquid via teaspoon: Result: 1= does not enter airway Thin Liquid via teaspoon Trial 2: Result: 1= does not enter airway Thin Liquid via sequential sips: cup: Result: 2= enter airway/above vocal folds/ejected [place] Thick Liquid via small single sip: cup: Result: 1= does not enter airway Pudding via teaspoon: Result: 1= does not enter airway Comment: Esophageal screen - Complete clearance. Pt repositioned in chair during the esophageal screen due to chair partially obstructing view of the esophagus. 1/2 Cookie: Result: 1= does not enter airway Comment: Esophageal screen - Retention of majority of the bolus in the upper and middle of the esophagus. Mild retention in the lower esophagus. Thin Liquid via single sip: straw: Result: 1= does not enter airway Comment: Esophageal screen - Liquid wash cleared cookie retention through the LES. Thin Liquid via sequential sips:straw: Result: 2= enter airway/above vocal folds/ejected Barium Tablet w/ thin water liquid wash (sequential sips by cup): Comment: No PAS score as the barium tablet did not leave the oral cavity; however, MEAT AND SEAFOOD MANAGER highly suspects aspiration of thin water due to coughing episode immediately following sequential sips. Bairum tablet w/ chocolate pudding: Comment: No PAS score as the barium tablet did not leave the oral cavity. Barium Tablet w/ thin barium liquid wash (sequential sips by straw): Result: 2= enter airway/above vocal folds/ejected Comment: Utilized barium for wash due to concerns for aspiration of thin water via sequential cup. Patient required 7 liquid washes via straw prior to clearing the pill from the oral cavity. Esophageal screen - Retention of barium tables in the lower esophagus. Moderate retention of thin barium in the lower and middle esophagus w/ retrograde flow. Oral Phase Labial Seal: Escape beyond interlabial space; no extension beyond ana border Tongue Control During Bolus Hold: Posterior escape of greater than half of bolus Bolus Preparation/Mastication: Slow prolonged chewing/mashing with complete recollection Bolus Transport/Lingual Motion: Repetitive/disorganized tongue motion Oral Residue: Majority of bolus remaining (thin by tsp, >50% in oral cavity after the first swallow, independent initiation of additional swallow mostly cleared the bolus) Pharyngeal Phase Initiation of Pharyngeal Swallow: Bolus head in pyriforms Soft Palate Elevation: Trace column of contrast/air between soft palate and pharyngeal wall Laryngeal Elevation: Partial superior movement thyroid cart/partial apprx aryt-epig petiole (Highly suspect aspiration of thin water) Anterior Hyoid Excursion: Partial anterior movement Epiglottic Movement: Complete inversion Laryngeal Vestibule Closure at Height of Swallow: Incomplete; narrow column of air/contrast in laryngeal vestibule Pharyngeal Stripping Wave: Present - complete Pharyngoesophageal Segment Opening: Parital distension and partial duration; parital obstruction of flow (Trace retention in the UES) Tongue Base Retraction: Narrow column of contrast between tongue base & post. pharyngeal wall Pharyngeal Residue: Trace residue within or on pharyngeal structures Esophageal Phase Esophageal Clearance: Esophageal retention w/ retrograde flow below pharyngoesophageal seg. Diagnosis/Impression Diagnosis: Mild oropharyngeal dysphagia R13.12; Esophageal dysphagia R13.14 MBS Impressions: The oral phase is primarily marked by... -Premature posterior loss of liquids to the pyriform sinuses most evident w/ thin by tsp and sequential sips of thin liquids. -Disorganized tongue motion for A-P transport. Pt had greatly difficulty w/ A-P transport of whole tablet. -Slowed, but complete mastication. The pharyngeal phase is primarily marked by... -Delayed swallow onset. -Decreased airway closure laryngeal elevation and anterior hyoid excursion w/ laryngeal penetration of thin liquids w/ complete ejection. MEAT AND SEAFOOD MANAGER highly suspects aspiration of thin water when used as a liquid wash for barium tablet. The esophageal phase is primarily marked by... -Retention of cookie in the upper/middle esophagus, mild retention in the lower esophagus. Liquid wash effectively cleared cookie through the LES. -Retention of barium tablet in the LES w/ retention of liquid barium in the middle and lower esophagus w/ retrograde flow. Recommendations Diet: Regular Textures (Moisten Dry Textures) and Thin Liquids Comment: Pills crushed in puree as able. For pills that can't be crushed, whole, one at a time, w/ liquid wash via straw. Compensatory Strategies: Small Bites, Small Sips, Slow Rate (Sips 1 at a time), Alternate bites/solids and sips/liquids (Take a sip after every 1-2 bites) and Sitting upright (During and 30-60min after meals) Recommend Repeat Modified Barium Swallow: Yes (Routine MBSS would be beneficial to monitor the patient's dysphagia as PD progresses. Would consider the pt for repeat MBSS annually or sooner if concern for worsening diet tolerance.) Need for Skilled Speech Therapy Services: Yes Comment: Recommend OP dysphagia treatment... -Train the patient in use of strategies to decrease risk for aspiration and reflux aspiration. -Discuss management strategies for xerostomia. -Ongoing assessment of diet tolerance of recommended textures. Consider downgrade to Easy to Chew textures if duration of chewing results in fatigue at meals. -Train the patient in oropharyngeal exercise program to improve lingual control, swallow onset, and airway closure. Recommended Referrals: GI Consult Education Completed: 1. Described result of evaluation., 2. Pt understands evaluation & agrees with goals and treatment plan. and 7. Pt requires further education on strategies & risks. Comment: Results and recommendations thoroughly reviewed w/ the patient and her . MEAT AND SEAFOOD MANAGER faxed the patient's MBSS to Dr. Hardin, Dr. Sreekanth Dominguez, and Dr. Doug Fields (neurology, [facility]) per patient request. Status Active ST Patient: Active Contact Information [facility] Speech Therapy:: Joann Avina M.A. [facility]-MEAT AND SEAFOOD MANAGER Speech-Language Pathologist [address] [place] [address] [phone] 04/01/25 [id number] <Electronically signed by Joann Avina M.A., CCC-MEAT AND SEAFOOD MANAGER>
--- NOTE | 2025-04-05 09:49 | HP.SPREEV_ITS ---
Visit History Visit Info Date of Eval: 02/26/25 Today is Visit #: 1 Racing Driver: JOSEFA History Attending Doctor: Referring Doctor: Reason for Referral: PARKINSONS. RX HERE Date of Onset of Diagnosis: Feb 2015 Previous speech therapy: Yes Results: Patient reported she has had multiple times of speech therapy since her diagnosis of Parkinson's Disease at this facility and others. With this therapist in 2015 she had good results for increased volume. She reported she has had therapy at [facility] and in [place] since then. Other Relevant Medical History/Diagnoses/Surgery: SOB (shortness of breath) Valvular heart disease Type 2 diabetes mellitus CANDIDA (obstructive sleep apnea) Osteopenia Mixed incontinence Kidney disease Dysphagia Hydronephrosis Anxiety Festinating gait Endometriosis Diverticulosis Decreased strength, endurance, and mobility Decreased functional activity tolerance Coordination impairment Cervical pain Carotid stenosis Bradykinesia Bilateral lower extremity edema Chronic constipation Abnormal CT scan Restless leg Depressed Parkinson disease Smoking Status: Never smoker Diagnosis Diagnosis: PARKINSONS, Dysphonia, Mild oropharyngeal dysphagia R13.12 Pain Is pain an issue with your current prescribed condition?: No Personal Preferred language: Belarusian Patient Allergies Allergies Allergies: Allergies aripiprazole (From Abilify) Allergy (Mild, Verified 12/17/24 13:53) Other HX OF PARKINSONS DISEASE prednisone Allergy (Mild, Verified 12/17/24 13:45) OTHER flairs up my Lymphedema prochlorperazine (From Compazine) Allergy (Mild, Verified 12/17/24 13:53) Other HX OF PARKINSONS DISEASE erythromycin base Allergy (Verified 12/17/24 13:44) UNK esomeprazole magnesium (From Nexium) Allergy (Verified 12/17/24 13:44) Unknown cefadroxil (From Duricef) Adverse Reaction (Intermediate, Verified 12/17/24 13:44) Hives desonide Adverse Reaction (Mild, Verified 12/17/24 13:53) Other WORSENING LYMPHEDEMA WITH TOPICAL CREAM haloperidol (From Haldol) Adverse Reaction (Mild, Verified 12/17/24 13:53) Other HX OF PARKINSONS olanzapine (From Zyprexa) Adverse Reaction (Mild, Verified 12/17/24 13:53) Other HX OF PARKINSONS promethazine (From Phenergan) Adverse Reaction (Mild, Verified 12/17/24 13:53) Other HX OF PARKINSONS azithromycin Adverse Reaction (Verified 12/17/24 13:44) Nausea/Vom/Diarrhea Previous/Current Goals Goals 1-5 Previous Goal #1: Patient will increase vocal loudness to reach a target sound pressure level of 75 dB CHIEF EXECUTIVE OFFICER with 1 cue during sustained phonation, which will help increase vocal respiratory support for functional communication. Goal 1 Status: Goal Met. Initial: 71 dB. Currently: Average of 75 dB with range 71-80. Previous Goal #2: Patient will increase vocal loudness to reach a target sound pressure level of 65 dB CHIEF EXECUTIVE OFFICER with 1 cue during reading at the word and sentence level, which will help increase vocal respiratory support for functional communication. Goal 2 Status: Goal met: Initial: reading functional phrases, patient's average sound pressure level was 62 dB. Currently: 8-9 word sentences: 71 dB Patient benefited from verbal cues to take a breath every 3-4 words for vocal quality and breath support Previous Goal #3: Patient will increase vocal loudness to reach a target sound pressure level of 60 dB CHIEF EXECUTIVE OFFICER with 1 cue during conversation for functional communication. Goal 3 Status: Goal continues: Initial: Given one visual cue, patient's average sound pressure level during conversation was 57 dB. Currently: 61 dB with maximal cues. Previous Goal #4: Patient will sustain phonation for an average of 10 seconds on 4/5 trials on 2/3 consecutive sessions which will help increase vocal respiratory support for functional communication. Goal 4 Status: Goal continues: Initial: Average was 8 seconds. Range from 6-10 seconds. Currently: Average was 4.1 seconds. Range was 4-6 seconds. Previous session was average of 5.4 seconds. Range was 4-7 seconds. Subjective Dysphagia Symptoms Reported Symptoms/Problems with: Drooling, Coughing and Xerostomia Current Diet Solids Current Diet: Regular Current Diet Liquids Current Liquids: Thin Objective Dysphagia Recommendations Swallowing Treatment: Yes Diet Texture Recommendations Solids: Regular (Level 7) Liquids: Thin (Level 0) Safety Saftey Precautions/Swallowing Recommendations (Check all that Apply): Upright Position at Least 30 Minutes After Meals, Small Sips & Bites when Eating, Sips by Straw Only and Alternate Liquids & Solids Results Swallowing Within Normal Limits: No Swallowing Diagnosis: Oropharyngeal Phase Dysphagia (R13.12) Severity: Mild Modified Barium Results Hx If Applicable Enter into a NOTE MBS Results (from prior exam): 04/05/25 09:21 Speech Therapy by Cesar Cano [facility] Speech Pathology [address] [place] [address] Modified Barium Swallow Study MR#: [id number] Acct: [id number] Name: JEROME CORREA Rep #: [id number] : 1950 74 From: Joann Avina M.A., [facility]-CHIEF EXECUTIVE OFFICER Modified Barium Swallow Patient Information Study Date: 04/01/25 Study Time: 13:00 Direct Billable Minutes: 120 Total Minutes procedure & reportin Diagnosis: R13.12; G20; R49.0 Referring Physician: Torey Hardin Reason for Referral: Re-assess swallow function and aspiration risk to determine appropriate dysphagia interventions. Medical History: Current OP ST POC at rehabilitation for management of moderate dysphonia. Cesar RESENDIZ, recommended the patient for this MBSS due to throat clearing w/ drinks and hx of dysphagia w/ most recent MBSS in 2022 (no records, completed at another facility). Cesar RESENDIZ, obtained order from Dr. Hardin. She did have MBSS at [facility] in 2015, which revealed mild oropharyngeal dysphagia and recommended regular textures / thin liquids w/ aspiration precautions. GI office visit note 02/15/2025 stated patient had concerns for increased swallowing difficulty w/ foods and liquids, sensation of foods sticking in her throat, eating more slowly, chronic constipation. The note had recommended VFSS/MBSS, as well as a soft, easily chewed diet w/ thickened liquids. Patient reported at this MBSS that she has had increased swallowing difficulty for the past year, which is gradually worsening. She reports having PD for the past 10 years. Her swallowing difficulty is typically w/ liquids. She will have bad coughing episodes. She denies difficulty chewing or swallowing solids. She also reports severe xerostomia. She reports standing at meals to help w/ digestion. PMH: SOB (shortness of breath) Valvular heart disease Type 2 diabetes mellitus CANDIDA (obstructive sleep apnea) Osteopenia Mixed incontinence Kidney disease Dysphagia Hydronephrosis Anxiety Festinating gait Endometriosis Diverticulosis Decreased strength, endurance, and mobility Decreased functional activity tolerance Coordination impairment Cervical pain Carotid stenosis Bradykinesia Bilateral lower extremity edema Chronic constipation Abnormal CT scan Restless leg Depressed Parkinson disease Current Diet Ordered: Regular textures / Thin liquids Dentition: Natural Teeth and Missing Teeth Mental Status: WNL (Able to follow commands for MBSS w/o difficulty) Respiratory Status: Oxygenating on Room Air Penetration-Aspiration Scale Penetration-Aspiration Scale: OBJECTIVE ASSESSMENT OF SWALLOW FUNCTION (QUANTITATIVE ? PER TRIAL): PENETRATION / ASPIRATION SCALE (KEE): 1 = does not enter airway 2 = enters airway/above vocal folds/ejected 3 = enters airway/above vocal folds/not ejected 4 = enters airway/contacts vocal folds/ejected 5 = enters airway/contacts vocal folds/not ejected 6 = enters airway/below vocal folds/ejected 7 = enters airway/below vocal folds/not ejected despite effort 8 = enters airway/below vocal folds/no effort VIDEOFLOROSCOPIC SCALE SCORE (KEE): Grade I = aspiration of material that has penetrated into the laryngeal vestibule, intact cough reflex Grade II = aspiration < 10 % of the bolus, intact cough reflex Grade III = aspiration of < 10 % of the bolus, reduced cough reflex or aspiration of > 10 % of the bolus, intact cough reflex Grade IV = aspiration of > 10 % of the bolus, reduced cough reflex Penetration-Aspiration Scale Score Thin Liquid via teaspoon: Result: 1= does not enter airway Thin Liquid via teaspoon Trial 2: Result: 1= does not enter airway Thin Liquid via sequential sips: cup: Result: 2= enter airway/above vocal folds/ejected [place] Thick Liquid via small single sip: cup: Result: 1= does not enter airway Pudding via teaspoon: Result: 1= does not enter airway Comment: Esophageal screen - Complete clearance. Pt repositioned in chair during the esophageal screen due to chair partially obstructing view of the esophagus. 1/2 Cookie: Result: 1= does not enter airway Comment: Esophageal screen - Retention of majority of the bolus in the upper and middle of the esophagus. Mild retention in the lower esophagus. Thin Liquid via single sip: straw: Result: 1= does not enter airway Comment: Esophageal screen - Liquid wash cleared cookie retention through the LES. Thin Liquid via sequential sips:straw: Result: 2= enter airway/above vocal folds/ejected Barium Tablet w/ thin water liquid wash (sequential sips by cup): Comment: No PAS score as the barium tablet did not leave the oral cavity; however, CHIEF EXECUTIVE OFFICER highly suspects aspiration of thin water due to coughing episode immediately following sequential sips. Bairum tablet w/ chocolate pudding: Comment: No PAS score as the barium tablet did not leave the oral cavity. Barium Tablet w/ thin barium liquid wash (sequential sips by straw): Result: 2= enter airway/above vocal folds/ejected Comment: Utilized barium for wash due to concerns for aspiration of thin water via sequential cup. Patient required 7 liquid washes via straw prior to clearing the pill from the oral cavity. Esophageal screen - Retention of barium tables in the lower esophagus. Moderate retention of thin barium in the lower and middle esophagus w/ retrograde flow. Oral Phase Labial Seal: Escape beyond interlabial space; no extension beyond ana border Tongue Control During Bolus Hold: Posterior escape of greater than half of bolus Bolus Preparation/Mastication: Slow prolonged chewing/mashing with complete recollection Bolus Transport/Lingual Motion: Repetitive/disorganized tongue motion Oral Residue: Majority of bolus remaining (thin by tsp, >50% in oral cavity after the first swallow, independent initiation of additional swallow mostly cleared the bolus) Pharyngeal Phase Initiation of Pharyngeal Swallow: Bolus head in pyriforms Soft Palate Elevation: Trace column of contrast/air between soft palate and pharyngeal wall Laryngeal Elevation: Partial superior movement thyroid cart/partial apprx aryt- epig petiole (Highly suspect aspiration of thin water) Anterior Hyoid Excursion: Partial anterior movement Epiglottic Movement: Complete inversion Laryngeal Vestibule Closure at Height of Swallow: Incomplete; narrow column of air/contrast in laryngeal vestibule Pharyngeal Stripping Wave: Present - complete Pharyngoesophageal Segment Opening: Parital distension and partial duration; parital obstruction of flow (Trace retention in the UES) Tongue Base Retraction: Narrow column of contrast between tongue base & post. pharyngeal wall Pharyngeal Residue: Trace residue within or on pharyngeal structures Esophageal Phase Esophageal Clearance: Esophageal retention w/ retrograde flow below pharyngoesophageal seg. Diagnosis/Impression Diagnosis: Mild oropharyngeal dysphagia R13.12; Esophageal dysphagia R13.14 MBS Impressions: The oral phase is primarily marked by... -Premature posterior loss of liquids to the pyriform sinuses most evident w/ thin by tsp and sequential sips of thin liquids. -Disorganized tongue motion for A-P transport. Pt had greatly difficulty w/ A-P transport of whole tablet. -Slowed, but complete mastication. The pharyngeal phase is primarily marked by... -Delayed swallow onset. -Decreased airway closure laryngeal elevation and anterior hyoid excursion w/ laryngeal penetration of thin liquids w/ complete ejection. CHIEF EXECUTIVE OFFICER highly suspects aspiration of thin water when used as a liquid wash for barium tablet. The esophageal phase is primarily marked by... -Retention of cookie in the upper/middle esophagus, mild retention in the lower esophagus. Liquid wash effectively cleared cookie through the LES. -Retention of barium tablet in the LES w/ retention of liquid barium in the middle and lower esophagus w/ retrograde flow. Recommendations Diet: Regular Textures (Moisten Dry Textures) and Thin Liquids Comment: Pills crushed in puree as able. For pills that can't be crushed, whole, one at a time, w/ liquid wash via straw. Compensatory Strategies: Small Bites, Small Sips, Slow Rate (Sips 1 at a time), Alternate bites/solids and sips/liquids (Take a sip after every 1-2 bites) and Sitting upright (During and 30-60min after meals) Recommend Repeat Modified Barium Swallow: Yes (Routine MBSS would be beneficial to monitor the patient's dysphagia as PD progresses. Would consider the pt for repeat MBSS annually or sooner if concern for worsening diet tolerance.) Need for Skilled Speech Therapy Services: Yes Comment: Recommend OP dysphagia treatment... -Train the patient in use of strategies to decrease risk for aspiration and reflux aspiration. -Discuss management strategies for xerostomia. -Ongoing assessment of diet tolerance of recommended textures. Consider downgrade to Easy to Chew textures if duration of chewing results in fatigue at meals. -Train the patient in oropharyngeal exercise program to improve lingual control, swallow onset, and airway closure. Recommended Referrals: GI Consult Education Completed: 1. Described result of evaluation., 2. Pt understands evaluation & agrees with goals and treatment plan. and 7. Pt requires further education on strategies & risks. Comment: Results and recommendations thoroughly reviewed w/ the patient and her . CHIEF EXECUTIVE OFFICER faxed the patient's MBSS to Dr. Hardin, Dr. Sreekanth Dominguez, and Dr. Doug Fields (neurology, [facility]) per patient request. Status Active ST Patient: Active Contact Information [facility] Speech Therapy:: Joann Avina M.A. [facility]-CHIEF EXECUTIVE OFFICER Speech-Language Pathologist [facility] [address] [place] [address] [phone] 04/01/25 1614 <Electronically signed by Joann Avina M.A., CCC-CHIEF EXECUTIVE OFFICER> Initialized on 04/05/25 09:21 - END OF NOTE Objective Voice Date of Diagnosis Previous Speech Therapy (If yes, describe): Yes Medications Familiar with on/off effect: Yes Implantation Deep brain implantation (If yes, answer next question): No Objective data Objective Data: Objective data: Sound pressure level (SPL acoustic correlation of vocal loudness) was measured with a sound level meter at a distance of 40 cm from the patient's mouth. Average conversational loudness is 70-80 dB and sust ained phonation duration is 15 to 20 seconds for a typical adult. Sustained Phonation Intensity (dB SPL): 70.3 dB Sustained Phonatin duration (seconds): 7.6 Is the individual stimulable to increase vocal intensity: Yes (increased to 77 dB with one cue) Vocal Intensity at Conversational Level (dB SPL): 53 dB Reference: Neuro-QoL instrument HDQLIFE - Speech Difficulties In the past 7 days. It was difficult for other people to understand me.: Always Is was difficult to speak clearly?: Always In the past 7 days.. How often did you limit your social activites because you had difficulty speaking?: Often In the past 7 days... I had trouble speaking.: Very much I was frustrated by my speech difficulties.: Very much How much DIFFICULTY do you have... ...saying what you want to say?: Some difficulty Score HDQLIFE Speech Difficulties Raw Score: 27 HDQLIFE Speech Difficulties T - Score: 66 Radiation Oncology Patient Plan Plan Plan: Speech therapy will be completed for 2 more sessions prior to patient going to [place] for the winter to focus on dysphonia and dysphagia along with a home program. Recommendations Treatment Warranted: Yes Treatment Warranted: Dysphagia and Voice Progress Prognosis: Good Frequency Frequency: 2x /Week Additional (Frequency): Patient is going to [place] on 04/09/25 Duration: 1 Week Visits in this POC: 2 Patient/Family Goal Patient/Family Goal: Patient's goal is to be able loud and be understood. Goals that are Established Determination:: Goals will be added/modified as deemed necessary and appropriate. Therapy will be discontinued when results of re-evaluation indicate therapy is no longer needed or lack of progress has been documented. Goal #1-5 Goal #1: Patient will increase vocal loudness to reach a target sound pressure level of 60 dB CHIEF EXECUTIVE OFFICER with 1 cue during conversation for functional communication. Goal #2: Patient will sustain phonation for an average of 10 seconds on 4/5 trials on 2/3 consecutive sessions which will help increase vocal respiratory support for functional communication. Goal #3: Patient will demonstrate an understanding of dysphagia exercises to be able to complete with cues from caregivers/family. Goal #4: Patient will verbalize an understanding of home program for dysphonia and dysphagia. Education Patient has Indicated that the Following Identified Educational Needs: Cognitively Impaired and Hearing/Vision/Speech Impaired Patient Instruction Patient Education: Diagnosis and Treatment Plan Person Taught: Patient and Significant Other Response to teaching: Verbalize Understanding and Has Prior Knowledge
--- NOTE | 2025-04-13 13:01 | HP.SP.DC_ITS ---
ST Discharge Summary Discharged: Discharge: Suzy Marshall is discharged from [facility] speech therapy as of 04/07/25 as she is going to [place] for the winter. She was evaluated on 02/26/25 for dysphonia due to Parkinson?s disease. She attended a total of 12 visits that focused on increasing vocal loudness in structured and unstructured tasks. She had an MBSS on 04/01/25 with the recommendations: Regular Textures (Moisten Dry Textures) and Thin Liquids Pills crushed in puree as able. For pills that can't be crushed, whole, one at a time, w/ liquid wash via straw. Compensatory Strategies: Small Bites, Small Sips, Slow Rate (Sips 1 at a time), Alternate bites/solids and sips/liquids (Take a sip after every 1-2 bites) and Sitting upright (During and 30-60min after meals) She was able to attend 2 sessions after her MBS for training on oropharyngeal exercise program and compensatory strategies. Her most recent plan of care was on 04/05/25 with details of progress for dysphonia. Please see daily notes and plan of cares for complete details. I look forward to working with her in the future should she choose to return to this facility. Thank you for allowing me to participate in the care of this patient.
== END 2025-04-07 19:00 | disposition home or self-care (01) ==
LOC: SP 11:00
PROVIDERS: PCP Family Medicine; Referring Provider Internal Medicine Gastroenterology; Visit Provider Internal Medicine Gastroenterology
DX: G20.A1 Parkinson's disease without dyskinesia, without mention of fluctuations (principal); R13.10 Dysphagia, unspecified; R49.0 Dysphonia
CPT/HCPCS: 92507; 92524; 92526